=== PATIENT | female | born 1970 | race Caucasian/White ===

== ENCOUNTER → 2018-01-09 | Outpatient (CLI) | payer BC ==
[2018-01-09 07:43] LABS: Basophils # (A) 0.1 k/uL (0-0.2); Basophils % (A) 1 %; Eosinophils # (A) 0.1 k/uL (0-0.7); Eosinophils % (A) 2 %; HCT 43.9 % (34.0-46.0); HGB 14.4 gm/dL (11.4-16.0); Lymphocytes # (A) 1.7 k/uL (1.0-4.8); Lymphocytes % (A) 25 %; MCH 29.9 pg (25.0-35.0); MCHC 32.7 g/dL (31.0-37.0); MCV 91.5 fL (80.0-100.0); Mean Platelet Volume 7.8; Monocytes # (A) 0.4 k/uL (0-1.0); Monocytes % (A) 5 %; Neutrophils # (A) 4.4 k/uL (1.3-7.7); Neutrophils % (A) 65 %; Platelet Count 215 k/uL (150-450); RBC 4.79 m/uL (3.80-5.40); RDW 13.8 % (11.5-15.5); WBC 6.8 k/uL (3.8-10.6)
[2018-01-09 08:14] LABS: ALT 24 U/L (9-52); AST 20 U/L (14-36); Albumin 4.5 g/dL (3.5-5.0); Alkaline Phosphatase 75 U/L (38-126); Anion Gap 9 mmol/L; Blood Urea Nitrogen 16 mg/dL (7-17); Calcium 9.9 mg/dL (8.4-10.2); Carbon Dioxide 28 mmol/L (22-30); Chloride 107 mmol/L (98-107); Cholesterol 178 mg/dL (<200); Glucose 102 mg/dL (74-99); HDL Cholesterol 54 mg/dL (40-60); LDL Cholesterol,Calculated 103 mg/dL (0-99); Potassium 4.7 mmol/L (3.5-5.1); Sodium 144 mmol/L (137-145); Total Bilirubin 0.6 mg/dL (0.2-1.3); Total Protein 7.5 g/dL (6.3-8.2); Triglycerides 107 mg/dL (<150)
[2018-01-09 08:15] LABS: T4, Free (Free Thyroxine) 0.93 ng/dL (0.78-2.19)
[2018-01-09 11:24] LABS: Hemoglobin A1C 5.1 % (4.0-6.0)
== END ==
LOC: LABWHC1 07:17
PROVIDERS: ATTEND Nurse Practitioner Family
DX: Z00.00 Encounter for general adult medical examination without abnormal findings (principal); R00.2 Palpitations; E78.1 Pure hyperglyceridemia; E55.9 Vitamin D deficiency, unspecified
CPT/HCPCS: 36415; 80053; 80061; 82306; 83036; 84439; 84443; 85025

== ENCOUNTER → 2018-01-17 | Outpatient (CLI) | payer BC ==
[2018-01-17 08:34] VITALS: BP 122/81; PULSE 69; RESP 16; TEMP 97.6; BMI 26.9
--- NOTE | 2018-01-17 09:22 | P.GSHP ---
History of Present Illness H&P Date: 01/17/18 Chief Complaint: abnormal mammogram The patient is a 47 year old white female who noted her right nipple was pointing up last week. She also noted a change in size with the right smaller, and the left seeming larger. She also complains of a lump in her upper right breast. She had a mammogram done on 01-09-18 which was extremely dense breast. No suspicious axillary lymphadenopathy was seen. On the mammogram no nipple retraction was seen. It was recommended she undergo an ultrasound and an ultrasound was performed on 01/09/2018 as well. The patient on ultrasound was noted to have extensive irregular heterogeneous shadowing tissue. At the 12 o' clock position was a small 8 mm cyst no other solid or cystic lesions were noted. No axillary lymphadenopathy was noted. The impression was of recommendation for surgical consultation regarding palpable site spanning the 90 2 o'clock position in the right breast. Additionally there was extensive irregular shadowing seen in this region unable to determine if this represented a suspicious abnormality or very dense breast tissue. The surgical consultation was recommended. The patient denies any trauma to her breast. She hasn't had no recent infections in her breasts. She does not have any palpable changes in the left breast. Family History: 1. mother: breast disease ? cancer/ from dementia 2. maternal aunt: breast cancer, early 50's from metastatic disease Hormonal History: menarche: 11 : 1, 1 child, at age 26, breast fed: no patient had an ablation for bleeding at 42 BCP: 2 years hormones: none Past Surgical History: 1. C section Medical History: 1. migrains Social History: smoke: none alcohol: none drugs: none - Constitutional Constitutional: Denies chills, Denies fever - EENT Eyes: denies decreased vision, denies pain Ears: deny: decreased hearing, tinnitus Ears, nose, mouth and throat: Reports headache, Denies sore throat - Breasts Breasts: bilateral: as per HPI - Cardiovascular Cardiovascular: Denies chest pain, Denies shortness of breath - Respiratory Respiratory: Denies cough, Denies 7 - Gastrointestinal Gastrointestinal: Denies abdominal pain, Denies diarrhea, Denies nausea, Denies vomiting - Genitourinary (Female) Genitourinary: Denies dysuria, Denies hematuria - Musculoskeletal Musculoskeletal: Denies myalgias - Integumentary Integumentary: Denies pruritus, Denies rash - Neurological Neurological: Denies numbness, Denies weakness - Psychiatric Psychiatric: Denies anxiety, Denies depression - Endocrine Endocrine: Denies fatigue, Denies weight change - Hematologic/Lymphatic Comment: takes excedrin as needed last taken Saturday - Allergic/Immunologic Comment: none Past Medical History Additional Past Medical History / Comment(s): "migraines a couple times a week" History of Any Multi-Drug Resistant Organisms: None Reported Past Surgical History: Section Additional Past Surgical History / Comment(s): x1 Smoking Status: Never smoker - Past Family History Mother Family Medical History: Cancer, COPD, Dementia Additional Family Medical History / Comment(s): "mother may have had breast cancer". Maternal aunt had breast cancer that went metastatic Father Family Medical History: Myocardial Infarction ([place]) Additional Family Medical History / Comment(s): in 1995 Medications and Allergies Home Medications Medication Instructions Recorded Confirmed Type Aspirin/Acetaminophen/Caffeine 1 tab PO DAILY PRN 01/16/18 01/17/18 History [Excedrin Migraine Caplet] Multivitamins, Thera [Multivitamin 1 tab PO DAILY 01/16/18 01/17/18 History (formulary)] Allergies Allergy/AdvReac Type Severity Reaction Status Date / Time No Known Allergies Allergy Verified 01/16/18 12:04 Surgical - Exam Vital Signs Temp Pulse Resp BP Pulse Ox 97.6 F 69 16 122/81 97 01/17/18 08:23 01/17/18 08:23 01/17/18 08:23 01/17/18 08:23 01/17/18 08:23 - General well developed, well nourished, no distress - Eyes normal ocular movement - ENT no hearing loss, no congestion - Neck no masses, trachea midline - Respiratory normal respiratory effort, clear to auscultation - Cardiovascular Rhythm: regular Heart Sounds: normal: S1, S2 - Abdomen Abdomen: soft - Integumentary right nipple retracted - Neurologic no disoriented, no combative - Musculoskeletal normal gait, normal posture - Psychiatric oriented to time, oriented to person, oriented to place, speech is normal, memory intact Breast examination: Right breast: The nipple on the right is retracted, the patient has a large mass in the right breast extending over the entire upper outer and inner quadrants of the breast this extends down into the lower breast as well Right axilla: No adenopathy of concern Left breast: Multi-positional exam reveals extremely dense breast tissue with no discrete dominant mass Left axilla: No adenopathy of concern Results Radiographs of the breast and ultrasound of the breast reviewed Assessment and Plan Assessment: Impression: 1. Right breast mass highly suspicious for malignancy 2. Abnormal mammogram and ultrasound of the right breast 3. Migraine headaches Plan: 1. Patient scheduled for ultrasound core biopsy of radiographic abnormality of the right breast this corresponds to the palpable abnormality 2. Medical management of medical problems 3. Patient is going to be off her Excedrin until after the biopsy Cc: Dr. Myers
== END | disposition home or self-care (01) ==
LOC: WWCWWP 08:08
PROVIDERS: ATTEND Surgery
DX: Z53.9 Procedure and treatment not carried out, unspecified reason (principal)

== ENCOUNTER → 2018-01-23 | Day surgery (SDC) | payer BC ==
[2018-01-23 13:52] VITALS: RESP 16; TEMP 98.1; BMI 26.9
[2018-01-23 14:47] VITALS: BP 112/74; PULSE 60
--- NOTE | 2018-01-23 15:51 | USB ---
EXAMINATION TYPE: US biopsy breast VAD RT, MG diagnostic mammo RT wo CAD DATE OF EXAM: 01/23/2018 CLINICAL HISTORY: R92.8 ABN MAMMO. TECHNIQUE: Ultrasound vacuum assisted guided core biopsy of right breast. COMPARISON: Outside ultrasound 01/09/2018, outside mammogram 01/09/2018 FINDINGS: The procedure of ultrasound guided core biopsy was explained to the patient. An informed consent was then obtained. The patient was placed in supine positioning for imaging and for the procedure. The overlying skin was prepped and draped in usual sterile fashion. Lidocaine buffered with bicarbonate was used as anesthetic into the skin and subcutaneous tissue up to area of concern in the right breast. A karina was made with surgical scalpel. Under ultrasound guidance, a 12-gauge vacuum assisted biopsy gun device was used to obtain 4 core samples in the upper outer right breast. Following this, a biopsy clip was left in lesion. The patient tolerated the procedure well without any immediate complication. The patient was kept in the radiology department for short stay after the procedure and then discharged home in stable condition. Postprocedure mammogram shows the clip at the lateral margin of the abnormality on mammogram. IMPRESSION: Successful, uncomplicated ultrasound guided core biopsy of area of concern in the right breast, full pathology results to follow. Pathology Results: Benign RIGHT BREAST, ULTRASOUND GUIDED CORE BIOPSY: Fibrocystic changes including cyst wall with fibrosis and adenosis. Recommendation Follow up mammogram of the right breast in 6 months. ARLINE
== END ==
LOC: RADUSWWP 13:13
PROVIDERS: ATTEND Surgery
DX: N60.01 Solitary cyst of right breast (principal); R92.8 Other abnormal and inconclusive findings on diagnostic imaging of breast
CPT/HCPCS: 88305; 77065; 19083; A4648; J2001

== ENCOUNTER → 2018-01-30 | Outpatient (CLI) | payer BC ==
[2018-01-30 09:09] VITALS: BP 123/79; PULSE 74; RESP 18; TEMP 97.6; BMI 26.9
--- NOTE | 2018-01-30 09:30 | P.PN ---
Subjective Progress Note Date: 01/30/18 Principal diagnosis: Right breast mass/radiographic abnormality The patient is a 47-year-old white female who is status post left breast ultrasound core biopsy. The pathology was consistent with benign breast tissue fibrocystic changes. This is not concordant with physical exam nor the initial radiographic findings. The patient does have some ecchymosis at the site. 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 Objective - Vital Signs Vital signs: Vital Signs Temp 97.6 F 01/30/18 08:48 Pulse 74 01/30/18 08:48 Resp 18 01/30/18 08:48 BP 123/79 01/30/18 08:48 Pulse Ox 100 01/30/18 08:48 Intake & Output 01/29/18 01/30/18 01/30/18 18:59 06:59 18:59 Weight 68.946 kg - Constitutional General appearance: Present: average body habitus - EENT Eyes: Present: EOMI ENT: Present: hearing grossly normal - Neck Neck: Present: normal ROM - Respiratory Respiratory: bilateral: CTA - Cardiovascular Rhythm: regular Heart sounds: normal: S1, S2 - Integumentary Integumentary Comment(s): Patient with ecchymosis in the lateral aspect of the right breast related to core biopsy, no large hematoma, patient has persistent mass in the right breast extending from the upper outer quadrant to posterior to the nipple areolar complex this is highly suspicious for malignancy. - Psychiatric Psychiatric: Present: A&O x's 3, appropriate affect, intact judgment & insight Assessment and Plan Assessment: Impression: 1. Right breast mass highly suspicious for malignancy 2. Abnormal mammogram and ultrasound of the right breast 3. Migraines Plan: 1. Patient to have core biopsy of palpable abnormality if this is not diagnostic would recommend open biopsy in the operating room 2. Medical management of medical conditions CC: Dr. Myers
== END | disposition home or self-care (01) ==
LOC: WWCWWP 08:38
PROVIDERS: ATTEND Surgery
DX: Z53.9 Procedure and treatment not carried out, unspecified reason (principal)

== ENCOUNTER → 2018-02-07 | Outpatient (CLI) | payer BC ==
[2018-02-07 15:01] VITALS: BP 118/81; PULSE 73; RESP 18; TEMP 98.3; BMI 26.9
--- NOTE | 2018-02-07 15:15 | P.PN ---
Progress Note - Text Progress Note Date: 02/07/18 Isa is a 47-year-old white female who returns for follow-up visit status post core biopsy of palpable abnormality in the right breast. This was performed on . The lesion is invasive lobular carcinoma. The lesion is ER/DE positive and HER-2 negative. Physical exam: There is ecchymosis in the area of the breast related to recent core biopsy No evidence of any infection The lesion itself was approximately 10 cm x 10 cm Right axilla no adenopathy of concern Impression: 1. Invasive lobular carcinoma of the right breast T4 N0 M0 2. Plan neoadjuvant chemotherapy 3. Follow-up here in 1 month CC:Louis
== END ==
LOC: WWCWWP 13:55
PROVIDERS: ATTEND Surgery
DX: Z53.9 Procedure and treatment not carried out, unspecified reason (principal)

== ENCOUNTER → 2018-02-17 | Outpatient (CLI) | payer BC ==
--- NOTE | 2018-02-20 17:15 | BMR ---
EXAMINATION TYPE: MR breast BILAT wo/w con DATE OF EXAM: 02/17/2018 COMPARISON: Outside right breast ultrasound dated 01/09/2018 and diagnostic right mammogram dated 01/23/2018 HISTORY: Rt breast lump/cancer 1 month ago TECHNIQUE: A series of fat and water weighted images in the long and short axis views of both breasts are obtained in conjunction with dynamic contrast MRI with subtraction technique. The patient was i njected with 7.5 mL intravenous Gadavist gadolinium contrast. Three-dimensional and additional post processing imaging is created on independent workstation and reviewed during official interpretation of this study. FINDINGS: The breasts are composed of extreme fibroglandular tissue, limiting sensitivity of the exam ination. There is symmetric moderate background parenchymal enhancement, which also limits exam. Ther e are numerous T2 hyperintense nonenhancing small cysts and some T2 hyperintense and T1 hyperintense likely proteinaceous or hemorrhagic cysts. Increased T1 signal is also seen in a linear fashion that may relate to proteinaceous intraductal debris within the right lateral breast. Susceptibility artifa ct is seen surrounding a hemorrhagic/proteinaceous cyst on the right at the 9:00 position from the pr ior biopsy. Asymmetric breast size is seen with the left larger than the right. There is suspicious nonmass enhancement there is multifocal and multicentric within the right breast. Within the lateral right breast at the 8-9 o'clock position there is an elongated region measuring a t least 5.0 cm in anterior posterior dimension by 1.5 cm in transverse dimension with foci containing abnormal washout enhancement. Caudal to this in the lower outer quadrant there are numerous foci of abnormal enhancement with the largest at posterior depth measuring 7 mm. Within the lower inner quadr ant there is an 8 mm area of nonmass enhancement at the 5:00 position. This is at middle depth approx imately 3 cm from the nipple. Nonmass enhancement is seen at the 3:00 position measuring a length of 4.7 cm and extending cranially to the 12:00 position. No suspicious areas of mass or nonmass enhancement are seen within the left breast. No suspicious axi llary or internal mammary adenopathy. No suspicious intramammary adenopathy. IMPRESSION: BI-RADS [id number] malignancy. Suspicious nonmass enhancement is seen multicentricly on the righ t within all 4 quadrants with the largest anterior posterior dimension of 5.0 cm at the 9 to 10:00 po sition. No suspicious intramammary, internal mammary or axillary adenopathy within either breast. No suspicious MR findings within the left breast to suggest contralateral disease. If breast conservatio n therapy is pursued additional right breast biopsies would be recommended after second look ultrasou nd within all 4 quadrants.
== END | disposition home or self-care (01) ==
LOC: RADMRIMAIN 14:08
PROVIDERS: ATTEND Internal Medicine Hematology & Oncology
DX: C50.411 Malignant neoplasm of upper-outer quadrant of right female breast (principal)
CPT/HCPCS: 77059; 0159T; A9585

== ENCOUNTER → 2018-02-20 | Outpatient (CLI) | payer BC ==
--- NOTE | 2018-02-20 12:23 | CT ---
EXAMINATION TYPE: CT ChestAbdPelvis w con DATE OF EXAM: 02/20/2018 COMPARISON: NONE HISTORY: Breast cancer right-pre chemo CT DLP: 619.0 mGycm. Automated Exposure Control for Dose Reduction was Utilized. CONTRAST: CT scan of the thorax, abdomen and pelvis is performed with IV Contrast, patient injected with 100 mL of Isovue 300. FINDINGS: LUNGS: There is minimal bibasilar subsegmental dependent atelectasis. The lungs are grossly clear, th ere is no concerning parenchymal mass or nodule identified. There is no pleural effusion or pneumot horax seen. The tracheobronchial tree is patent. MEDIASTINUM: There are no greater than 1 cm hilar or mediastinal lymph nodes. No pericardial effusi on is seen. No axillary or internal mammary adenopathy is seen bilaterally. Bright lateral biopsy ma rker is noted. LIVER/GB: Hepatic parenchyma is diffusely hypoattenuated in comparison to that of the spleen, most co mmonly seen in hepatic steatosis. This finding limits evaluation for hepatic masses. No gross evidenc e of hepatic mass is seen. No intrahepatic biliary ductal dilatation. No cholelithiasis PANCREAS: No significant abnormality is seen. SPLEEN: No significant abnormality is seen. Splenule is noted adjacent to the [place] spleen. ADRENALS: No significant abnormality is seen. KIDNEYS: The kidneys enhance and excrete symmetrically. No hydronephrosis. BOWEL: Moderate amount retained colonic stool is seen within the rectosigmoid junction. No pericoloni c fat stranding is seen or dilated large or small bowel. Appendix is contrast-filled and within shira l limits. GENITAL ORGANS: There is diffuse heterogeneity of the uterine myometrium and endometrium. Follicular changes are seen of the ovaries. Prominent pelvic vasculature are noted bilaterally. LYMPH NODES: No greater than 1cm abdominal or pelvic lymph nodes are appreciated. OSSEOUS STRUCTURES: There is a 4 mm small probable hemangioma is seen at T8. OTHER: There is a small fat filled periumbilical hernia. IMPRESSION: 1. No suspicious findings to suggest metastatic disease within the chest, abdomen, or pelvis. Probabl e 4 mm hemangioma of the T8 vertebral body. 2. Diffuse heterogeneity of the myometrium and endometrium. Further characterization with pelvic ultr asound is recommended to evaluate for discrete leiomyomas otherwise pelvic MRI would be recommended t o evaluate for adenomyosis or abnormal enhancement.
--- NOTE | 2018-02-20 14:22 | NM ---
EXAMINATION TYPE: NM bone scan whole body DATE OF EXAM: 02/20/2018 COMPARISON: CT chest, abdomen, and pelvis of the same date. HISTORY: Right-sided breast cancer. Delayed whole-body scanning was performed following the injection of 23.6 mCi Tc 99m MDP. Images acq uired 4 hours post injection. FINDINGS: Focal radiotracer uptake is seen within the posterior lateral third rib on the left with no CT correl ate. No other suspicious radiotracer accumulation is seen to suggest metastatic disease. There is sym metric arthropathic uptake within the sacroiliac joints and shoulders as well as to a lesser degree w ithin the hips, knees, and ankles as well as elbows. IMPRESSION: Focal radiotracer uptake within the posterior lateral left third rib without CT correlate. Finding is most suspicious for metastasis given the breast cancer subtype although focus is indeterminate. No o ther suspicious lesions throughout the axial or appendicular skeleton to suggest metastasis.
== END | disposition home or self-care (01) ==
LOC: RADNMMAIN 08:27
PROVIDERS: ATTEND Internal Medicine Hematology & Oncology
DX: C50.411 Malignant neoplasm of upper-outer quadrant of right female breast (principal)
CPT/HCPCS: 71260; 74177; 78306; A9503; Q9967

== ENCOUNTER → 2018-03-13 | Outpatient (CLI) | payer BC ==
[2018-03-13 12:32] LABS: Blood Urea Nitrogen 16 mg/dL (7-17)
--- NOTE | 2018-03-13 12:58 | CT ---
EXAMINATION TYPE: CT angio chest DATE OF EXAM: 03/13/2018 COMPARISON: Recent CT chest February 20, 2018 HISTORY: SOB, breast CA CT DLP: 176 mGycm. Automated Exposure Control for Dose Reduction was Utilized. CONTRAST: CTA scan of the thorax is performed with IV Contrast, patient injected with 100 mL of Isovue 370, pul monary embolism protocol. MIP Images are created on CT scanner and reviewed. FINDINGS: LUNGS: Patchy bibasilar linear scarring and/or atelectasis is redemonstrated. Dependent atelectasis b ilateral lower lobes is again seen. No suspicious new focal consolidation or groundglass opacity is s een. No pleural effusion or pneumothorax is noted bilaterally. Tracheobronchial tree is patent. No serna spicious parenchymal nodules or masses are identified. MEDIASTINUM: There is satisfactory enhancement of the pulmonary artery and its branches, there is no CT evidence for pulmonary embolism. There are no greater than 1 cm hilar or mediastinal lymph nodes. Heart size is stable and mildly enlarged. There is tiny pericardial effusion increased from prior. T here is new right internal jugular Mediport catheter terminating in SVC. OTHER: Biopsy clip lateral right breast axial image 63 is redemonstrated. IMPRESSION: 1. No CT evidence for acute pulmonary embolism. No suspicious new acute pulmonary process.
== END | disposition home or self-care (01) ==
LOC: RADCTMAIN 11:52
PROVIDERS: ATTEND Internal Medicine Hematology & Oncology
DX: R06.02 Shortness of breath (principal)
CPT/HCPCS: 82565; 84520; 71275; 36415; Q9967

== ENCOUNTER 2018-05-17 15:15 | Inpatient (IN) | payer BC ==
[2018-05-17] MEDS ORDERED: SODIUM CHLORIDE 0.9% 1,000 ML IV ONE (16:03)
--- NOTE | 2018-05-17 16:05 | ED ---
Fever HPI - General Chief Complaint: Fever Stated Complaint: Fever Time Seen by Provider: 05/17/18 15:38 Source: patient Mode of arrival: ambulatory Limitations: no limitations - History of Present Illness Initial Comments: 48-year-old female with active breast cancer on chemotherapy every for the last 3 weeks for a total of 16 treatments presenting with fever that presented to days prior. She states that her fever was 101 at home. She called her oncologist, Dr. Woodard, who put her on levofloxacin starting yesterday. The patient has had 2 doses and continues to be febrile. She admits to a nonproductive cough, generalized abdominal pain with constipation. Patient states her last bowel movement was 3 days prior. She is still passing gas. Denies any chest pain, shortness of breath, urinary symptoms. - Related Data Home Medications Medication Instructions Recorded Confirmed Levofloxacin [Levaquin] 500 mg PO DAILY 05/17/18 05/17/18 Allergies Allergy/AdvReac Type Severity Reaction Status Date / Time No Known Allergies Allergy Verified 05/17/18 16:03 Review of Systems ROS Statement: Those systems with pertinent positive or pertinent negative responses have been documented in the HPI. Review of Systems Constitutional: Positive fever, chills Eyes: Denies change in vision, Denies pain Ears, nose, mouth, throat: Denies headaches, Denies sore throat Cardiovascular: Denies chest pain. Denies palpitations Respiratory: Denies shortness of breath, Positive cough Gastrointestinal: Positive abdominal pain. Denies nausea, vomiting, diarrhea. Genitourinary: Denies hematuria, Denies infections Musculoskeletal: Denies pain, Denies swelling Integumentary: Denies rash Neurological: Denies headache, focal weakness, focal numbness Psychiatric: Denies anxiety, Denies depression Hematologic/Lymphatic: Denies easy bleeding or bruising ROS Other: All systems not noted in ROS Statement are negative. Past Medical History Past Medical History: Cancer Additional Past Medical History / Comment(s): "migraines a couple times a week" , breast cancer History of Any Multi-Drug Resistant Organisms: None Reported Past Surgical History: Section Additional Past Surgical History / Comment(s): x1 Past Anesthesia/Blood Transfusion Reactions: No Reported Reaction Past Psychological History: No Psychological Hx Reported Smoking Status: Never smoker Past Alcohol Use History: None Reported Past Drug Use History: None Reported - Past Family History Mother Family Medical History: Cancer, COPD, Dementia Additional Family Medical History / Comment(s): "mother may have had breast cancer". Maternal aunt had breast cancer that went metastatic Father Family Medical History: Myocardial Infarction ([place]) Additional Family Medical History / Comment(s): in 1995 General Exam - General Exam Comments Initial Comments: General: Awake, alert, No acute Distress HENT: Normocephalic. Atraumatic Eyes: PERRL. EOMI. No scleral icterus. No injected conjunctiva Neck: Full ROM Chest/Lungs: Clear to auscultation bilaterally. No wheezing, rhonchi, or rales Cardiac: Regular rate, rhythm. No murmurs or rubs Abdomen/GI: Soft, nontender, nondistended. No rebound, guarding, or rigidity. Musculoskeletal: Full ROM Skin: Warm, dry, intact Neurologic: A/Ox3, no weakness, no sensory deficit, no abnormal gait, no coordination deficit Limitations: no limitations Course Vital Signs 05/17/18 05/17/18 05/17/18 15:22 16:25 16:54 Temperature 98.8 F 100.2 F H Pulse Rate 104 H 94 Respiratory 18 18 Rate Blood Pressure 99/66 96/71 O2 Sat by Pulse 97 100 Oximetry 05/17/18 05/17/18 05/17/18 17:42 18:29 18:52 Temperature 100.9 F H 99 F Pulse Rate 99 96 95 Respiratory 18 18 18 Rate Blood Pressure 112/65 106/70 106/70 O2 Sat by Pulse 96 98 97 Oximetry Medical Decision Making - Medical Decision Making 38-year-old female presenting with fever. Initial exam the patient is awake, alert, no acute distress. She is febrile but and is on the low-normal for BP. This improved with IVF bolus. Patient is actively undergoing chemotherapy and is currently leukopenic with a white blood cell count of 2.5. Neutrophils 82%. Patient was still placed on neutropenic precautions. She was found have a UTI remainder of her lab work was otherwise unremarkable. CT was negative for acute process. Patient was given Rocephin in the emergency department requires admission. I spoke with Dr. Myers who is agreeable to admission for sepsis, UTI , and leukopenia. Patient states she is unable to swallow pills at baseline. Patient was given liquid Tylenol for her fever. She was refusing to drink the Effer-K for her potassium replacement. IV potassium ordered. - Lab Data Result diagrams: 05/17/18 16:15 05/17/18 16:15 Lab Results 05/17/18 05/17/18 05/17/18 Range/Units 16:15 16:15 16:15 WBC 2.5 L (3.8-10.6) k/uL RBC 2.99 L (3.80-5.40) m/uL Hgb 9.6 L (11.4-16.0) gm/dL Hct 27.9 L (34.0-46.0) % MCV 93.2 (80.0-100.0) fL MCH 32.1 (25.0-35.0) pg MCHC 34.5 (31.0-37.0) g/dL RDW 18.1 H (11.5-15.5) % Plt Count 191 (150-450) k/uL Neutrophils % 82 % Lymphocytes % 7 % Monocytes % 8 % Eosinophils % 2 % Basophils % 0 % Neutrophils # 2.0 (1.3-7.7) k/uL Lymphocytes # 0.2 L (1.0-4.8) k/uL Monocytes # 0.2 (0-1.0) k/uL Eosinophils # 0.0 (0-0.7) k/uL Basophils # 0.0 (0-0.2) k/uL Poikilocytosis Moderate Anisocytosis Slight Sodium 133 L (137-145) mmol/L Potassium 3.3 L (3.5-5.1) mmol/L Chloride 99 (98-107) mmol/L Carbon Dioxide 27 (22-30) mmol/L Anion Gap 7 mmol/L BUN 11 (7-17) mg/dL Creatinine 0.64 (0.52-1.04) mg/dL Est GFR (CKD-EPI)AfAm >90 (>60 ml/min/1.73 sqM) Est GFR (CKD-EPI)NonAf >90 (>60 ml/min/1.73 sqM) Glucose 97 (74-99) mg/dL Plasma Lactic Acid Ozzie (0.7-2.0) mmol/L Calcium 9.1 (8.4-10.2) mg/dL Total Bilirubin 1.1 (0.2-1.3) mg/dL Conjugated Bilirubin 0.0 (0.0-0.3) mg/dL Unconjugated Bilirubin 0.8 (0.0-1.1) mg/dL Delta Bilirubin 0.3 H (0.0-0.2) mg/dL AST 24 (14-36) U/L ALT 25 (9-52) U/L Alkaline Phosphatase 51 (38-126) U/L Total Protein 6.1 L (6.3-8.2) g/dL Albumin 3.6 (3.5-5.0) g/dL Lipase 70 (23-300) U/L Urine Color Urine Appearance (Clear) Urine pH (5.0-8.0) Ur Specific Cameron (1.001-1.035) Urine Protein (Negative) Urine Glucose (UA) (Negative) Urine Ketones (Negative) Urine Blood (Negative) Urine Nitrite (Negative) Urine Bilirubin (Negative) Urine Urobilinogen (<2.0) mg/dL Ur Leukocyte Esterase (Negative) Urine RBC (0-5) /hpf Urine WBC (0-5) /hpf Ur Squamous Epith Cells (0-4) /hpf Urine Bacteria (None) /hpf Urine Mucus (None) /hpf Influenza Type A RNA Not Detected (Not Detectd) Influenza Type B (PCR) Not Detected (Not Detectd) 05/17/18 05/17/18 Range/Units 16:15 16:20 WBC (3.8-10.6) k/uL RBC (3.80-5.40) m/uL Hgb (11.4-16.0) gm/dL Hct (34.0-46.0) % MCV (80.0-100.0) fL MCH (25.0-35.0) pg MCHC (31.0-37.0) g/dL RDW (11.5-15.5) % Plt Count (150-450) k/uL Neutrophils % % Lymphocytes % % Monocytes % % Eosinophils % % Basophils % % Neutrophils # (1.3-7.7) k/uL Lymphocytes # (1.0-4.8) k/uL Monocytes # (0-1.0) k/uL Eosinophils # (0-0.7) k/uL Basophils # (0-0.2) k/uL Poikilocytosis Anisocytosis Sodium (137-145) mmol/L Potassium (3.5-5.1) mmol/L Chloride (98-107) mmol/L Carbon Dioxide (22-30) mmol/L Anion Gap mmol/L BUN (7-17) mg/dL Creatinine (0.52-1.04) mg/dL Est GFR (CKD-EPI)AfAm (>60 ml/min/1.73 sqM) Est GFR (CKD-EPI)NonAf (>60 ml/min/1.73 sqM) Glucose (74-99) mg/dL Plasma Lactic Acid Ozzie 1.0 (0.7-2.0) mmol/L Calcium (8.4-10.2) mg/dL Total Bilirubin (0.2-1.3) mg/dL Conjugated Bilirubin (0.0-0.3) mg/dL Unconjugated Bilirubin (0.0-1.1) mg/dL Delta Bilirubin (0.0-0.2) mg/dL AST (14-36) U/L ALT (9-52) U/L Alkaline Phosphatase (38-126) U/L Total Protein (6.3-8.2) g/dL Albumin (3.5-5.0) g/dL Lipase (23-300) U/L Urine Color Yellow Urine Appearance Clear (Clear) Urine pH 6.5 (5.0-8.0) Ur Specific Cameron 1.013 (1.001-1.035) Urine Protein Negative (Negative) Urine Glucose (UA) Negative (Negative) Urine Ketones 1+ H (Negative) Urine Blood Moderate H (Negative) Urine Nitrite Negative (Negative) Urine Bilirubin Negative (Negative) Urine Urobilinogen <2.0 (<2.0) mg/dL Ur Leukocyte Esterase Moderate H (Negative) Urine RBC 13 H (0-5) /hpf Urine WBC 9 H (0-5) /hpf Ur Squamous Epith Cells 5 H (0-4) /hpf Urine Bacteria Rare H (None) /hpf Urine Mucus Few H (None) /hpf Influenza Type A RNA (Not Detectd) Influenza Type B (PCR) (Not Detectd) Disposition Clinical Impression: Sepsis, UTI (urinary tract infection), Leukopenia Disposition: ADMITTED IP TO THIS HOSP Condition: Good Decision Date: 05/17/18 Decision Time: 17:27
[2018-05-17] MEDS ORDERED: KETOROLAC 30 MG/ML 1 ML VIAL IVP STA (16:27)
[2018-05-17 16:40] LABS: Anisocytosis Slight; Basophils % (A) 0 %; Eosinophils % (A) 2 %; HCT 27.9 % (34.0-46.0); HGB 9.6 gm/dL (11.4-16.0); Lymphocytes # (A) 0.2 k/uL (1.0-4.8); Lymphocytes % (A) 7 %; MCH 32.1 pg (25.0-35.0); MCHC 34.5 g/dL (31.0-37.0); MCV 93.2 fL (80.0-100.0); Mean Platelet Volume 7.2; Monocytes # (A) 0.2 k/uL (0-1.0); Monocytes % (A) 8 %; Neutrophils % (A) 82 %; Platelet Count 191 k/uL (150-450); Poikilocytosis Moderate; RBC 2.99 m/uL (3.80-5.40); RDW 18.1 % (11.5-15.5); WBC 2.5 k/uL (3.8-10.6)
[2018-05-17 16:45] LABS: ALT 25 U/L (9-52); AST 24 U/L (14-36); Albumin 3.6 g/dL (3.5-5.0); Alkaline Phosphatase 51 U/L (38-126); Anion Gap 7 mmol/L; Bilirubin, Delta 0.3 mg/dL (0.0-0.2); Bilirubin,Unconjugated 0.8 mg/dL (0.0-1.1); Blood Urea Nitrogen 11 mg/dL (7-17); Calcium 9.1 mg/dL (8.4-10.2); Carbon Dioxide 27 mmol/L (22-30); Chloride 99 mmol/L (98-107); Glucose 97 mg/dL (74-99); Lipase 70 U/L (23-300); Potassium 3.3 mmol/L (3.5-5.1); Sodium 133 mmol/L (137-145); Total Bilirubin 1.1 mg/dL (0.2-1.3); Total Protein 6.1 g/dL (6.3-8.2)
[2018-05-17 16:48] LABS: Appearance,Urine Clear (Clear); Bacteria,Urine Rare /hpf; Bilirubin,Urine Negative (Negative); Blood,Urine Moderate (Negative); Color,Urine Yellow; Glucose,Urine (UA) Negative (Negative); Ketones,Urine 1+ (Negative); Leukocyte Esterase,Urine Moderate (Negative); Mucus,Urine Few /hpf; Nitrite,Urine Negative (Negative); PH, Urine 6.5 (5.0-8.0); Protein,Urine Negative (Negative); RBC,Urine 13 /hpf (0-5); Specific Gravity,Urine 1.013 (1.001-1.035); Squamous Epithelial Cell,Urine 5 /hpf (0-4); Urobilinogen,Urine <2.0 mg/dL (<2.0); WBC,Urine 9 /hpf (0-5)
--- NOTE | 2018-05-17 16:49 | XR ---
EXAMINATION TYPE: XR chest 2V DATE OF EXAM: 05/17/2018 COMPARISON: CT pulmonary angiogram 03/13/2018 HISTORY: Fever and pain TECHNIQUE: Frontal and lateral views of the chest are obtained. FINDINGS: There is no focal air space opacity, pleural effusion, or pneumothorax seen. Left basilar subsegmental atelectasis. The cardiac silhouette size is within normal limits. The osseous structu res are intact. Right sided IJ port is appropriately positioned. IMPRESSION: No acute cardiopulmonary process.
[2018-05-17] MEDS ORDERED: POTASSIUM BICARBONATE/CIT AC 20 MEQ TABLET.EFF PO ONE (16:57)
--- NOTE | 2018-05-17 16:59 | CT ---
EXAMINATION TYPE: CT abdomen pelvis w con DATE OF EXAM: 05/17/2018 COMPARISON: HISTORY: Fever and constipation, history of breast cancer. CT DLP: 664.8 mGycm Automated exposure control for dose reduction was used. TECHNIQUE: Helical acquisition of images was performed from the lung bases through the pelvis. CONTRAST: Performed without Oral Contrast and with IV Contrast, patient injected with 100ml mL of Isovue 300. FINDINGS: LUNG BASES: Minimal bibasilar subsegmental atelectasis. LIVER/GB: No significant abnormality is appreciated. PANCREAS: No significant abnormality is seen. SPLEEN: No significant abnormality is seen. ADRENALS: No significant abnormality is seen. KIDNEYS: No significant abnormality is seen. FREE AIR: No free air is visualized. RETROPERITONEAL ADENOPATHY: None visualized REPRODUCTIVE ORGANS: No significant abnormality is seen URINARY BLADDER: No significant abnormality is seen. PELVIC ADENOPATHY: None visualized. OSSEOUS STRUCTURES: No significant abnormality is seen. BOWEL: No significant abnormality is seen. Normal appendix. IMPRESSION: Unremarkable exam.
[2018-05-17] MEDS: SODIUM CHLORIDE 0.9% 1,000 ML IV SCH (17:32)
[2018-05-17] MEDS: ACETAMINOPHEN ORAL SUSP (PEDS) 3,840 MG/120 ML BOTTLE PO ONE ×2 (18:09→18:26)
[2018-05-17] MEDS ORDERED: POTASSIUM CHLORIDE 10 MEQ in WATER FOR INJECTION 1 100ML.BAG IVPB STA (18:58)
[2018-05-17] MEDS: LACTULOSE 20 GM/30 ML CUP PO SCH (20:23)
[2018-05-18] MEDS: SODIUM CHLORIDE 0.9% 1,000 ML IV SCH ×4 (00:58→21:25)
[2018-05-18] MEDS: ACETAMINOPHEN ORAL SUSP (PEDS) 3,840 MG/120 ML BOTTLE PO PRN ×2 (04:24→13:20)
[2018-05-18] MEDS: LACTULOSE 20 GM/30 ML CUP PO SCH (08:14)
[2018-05-18] MEDS ORDERED: LACTULOSE 20 GM/30 ML CUP PO PRN (09:21)
--- NOTE | 2018-05-18 12:37 | P.HPIM ---
History of Present Illness H&P Date: 05/18/18 Chief Complaint: Fever Visit pleasant 48-year-old female who presented to the emergency department complaining of fever at home. Patient has past medical history of active breast cancer on chemotherapy every for the last 3 weeks for a total of 16 treatments she has completed 7 cycles. Patient developed a fever at home and called her oncologist Dr. Woodard who put her on levofloxacin starting yesterday. Patient took 2 doses and continued to be febrile. She presented with a nonproductive cough, generalized abdominal pain with constipation. Her last bowel movement was approximately 3 days prior. She denied any chest pain shortness of breath or urinary symptoms. At this time patient is resting comfortably and continues to have no complaints. Her urine analysis showed positive UTI. Patient past medical history includes breast carcinoma without lymph node involvement, migraines, IBS. Review of Systems Review Of Systems: Constitutional: Reports fever, no chills, no night sweats. No weight change. No weakness, reports fatigue no lethargy. No daytime sleepiness. EENT: No headache. No blurred vision or double vision, no loss of vision. No loss of Hearing, no ringing in the ears, no dizziness. No nasal drainage or congestion. No epistaxis. No sore throat. Lungs: No shortness of breath, reports cough, no sputum production. No wheezing. Cardiovascular: No chest pain, no lower extremity edema. No palpitations. No paroxysmal nocturnal dyspnea. No orthopnea. No lightheadedness or dizziness. No syncopal episodes. Abdominal: no abdominal discomfort. No nausea, vomiting. no diarrhea. Report constipation. No bloody or tarry stools. Report Decrease appetite. Genitourinary: No dysuria, increased frequency, urgency. No urinary retention. Musculoskeletal: No myalgias. No muscle weakness, no gait dysfunction, no frequent falls. No back pain. No neck pain. Integumentary: No wounds, no lesions. No rash or pruritus. No unusual bruising. No change in hair or nails. Neurologic: No aphasia. No facial droop. No change in mentation. No head injury. No headache. No paralysis. No paresthesia. Psychiatric: No depression. No anxiety. No mood swings. Endocrine: No abnormal blood sugars. No weight change. No excessive sweating or thirst. Past Medical History Past Medical History: Cancer Additional Past Medical History / Comment(s): "migraines a couple times a week" , breast cancer History of Any Multi-Drug Resistant Organisms: None Reported Past Surgical History: Section Additional Past Surgical History / Comment(s): x1 Past Anesthesia/Blood Transfusion Reactions: No Reported Reaction Past Psychological History: No Psychological Hx Reported Smoking Status: Never smoker Past Alcohol Use History: None Reported Past Drug Use History: None Reported Additional History: . 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 Mother at 76 related to dementia. Maternal aunt had breast cancer that went metastatic Father Family Medical History: Myocardial Infarction ([place]) Additional Family Medical History / Comment(s): in 1995 age of 52 Daughter(s) Family Medical History: No Reported History Brother(s) Family Medical History: No Reported History Medications and Allergies Home Medications Medication Instructions Recorded Confirmed Type Levofloxacin [Levaquin] 500 mg PO DAILY 05/17/18 05/17/18 History Allergies Allergy/AdvReac Type Severity Reaction Status Date / Time No Known Allergies Allergy Verified 05/17/18 16:03 Physical Exam Vitals: Vital Signs Temp Pulse Pulse Resp BP BP Pulse Ox 05/18/18 05:04 99.3 F 05/18/18 04:53 100.9 F H 109 H 20 102/60 94 L 05/18/18 00:59 99.4 F 05/18/18 00:00 20 05/17/18 20:00 98.0 F 86 20 93/59 95 05/17/18 19:23 99.3 F 86 18 106/67 98 05/17/18 18:52 99 F 95 18 108/64 97 05/17/18 18:29 96 18 106/70 98 05/17/18 17:42 100.9 F H 99 18 112/65 96 05/17/18 16:54 94 18 96/71 100 05/17/18 16:25 100.2 F H 05/17/18 15:22 98.8 F 104 H 18 99/66 97 Intake and Output 05/17/18 05/18/18 05/18/18 22:59 06:59 14:59 Intake Total 1150 1560 Balance 1150 1560 Intake: Intake, IV Titration 550 1200 Amount Potassium Chloride 10 meq 100 In Water For Injection 1 100ml.bag @ 100 mls/hr IVPB ONCE STA Rx#: [id number] Sodium Chloride 0.9% 1, 450 1200 000 ml @ 150 mls/hr IV . Q6H40M [facility] Rx#:[id number] Oral 600 360 Other: # Voids 2 1 Weight 65.771 kg General Appearance: Alert, cooperative, no distress, appears younger stated age. Neck HEENT: Supple, no lymphadenopathy, no thyroid enlargement, no carotid bruits. Lungs: Clear to auscultation without crackles or wheezes no rhonchi, no deformity. Chest Wall: Chest wall normal expansion with deep inspiration no tenderness and no deformity was found on exam, no costochondral pain or discomfort. Heart: Regular rate and rhythm, S1, S2 normal, no murmur, rub or gallop. Back: Symmetric, no curvature, ROM normal, no CVA tenderness. Abdomen: Soft, non-tender, no rebound or rigidity, no hepatosplenomegaly. Extremities: Extremities normal, atraumatic, no cyanosis or edema. Pulses: 2+ and symmetric. Skin: Skin color, texture, tugor normal, no rashes or lesions. Neurologic: Alert oriented x3 cranial nerves II through XII intact, no motor deficit, no abnormal balance or gait Results CBC & Chem 7: 05/17/18 16:15 05/17/18 16:15 Labs: Abnormal Lab Results - Last 24 Hours (Table) 05/17/18 05/17/18 05/17/18 Range/Units 16:15 16:15 16:20 WBC 2.5 L (3.8-10.6) k/uL RBC 2.99 L (3.80-5.40) m/uL Hgb 9.6 L (11.4-16.0) gm/dL Hct 27.9 L (34.0-46.0) % RDW 18.1 H (11.5-15.5) % Lymphocytes # 0.2 L (1.0-4.8) k/uL Sodium 133 L (137-145) mmol/L Potassium 3.3 L (3.5-5.1) mmol/L Delta Bilirubin 0.3 H (0.0-0.2) mg/dL Total Protein 6.1 L (6.3-8.2) g/dL Urine Ketones 1+ H (Negative) Urine Blood Moderate H (Negative) Ur Leukocyte Esterase Moderate H (Negative) Urine RBC 13 H (0-5) /hpf Urine WBC 9 H (0-5) /hpf Ur Squamous Epith Cells 5 H (0-4) /hpf Urine Bacteria Rare H (None) /hpf Urine Mucus Few H (None) /hpf Microbiology - Last 24 Hours (Table) 05/17/18 14:20 Urine Culture - Preliminary Urine,Voided Thrombosis Risk Factor Assmnt - Choose All That Apply Any of the Below Risk Factors Present?: Yes Each Factor Represents 1 point: Age 41-60 years, Obesity (BMI >25) Other Risk Factors: Yes Each Risk Factor Represents 2 Points: Malignancy Thrombosis Risk Factor Assessment Total Risk Factor Score: 4 Thrombosis Risk Factor Assessment Level: Moderate Risk Assessment and Plan Plan: 1. Sepsis related to urinary tract infection. Obtain urine culture, Rocephin 1 g daily. 2. Leukopenia possibly neutropenia related to chemotherapy. Same as #1, 3. Generalized weakness. Same as #1 4. Fever. acetaminophen 1000 mg by mouth every 6 hours 5. Constipation. Lactulose 50 mg by mouth once as needed for when necessary, Colace as needed, MiraLAX 17 g as needed 6. Migraine stable 7. GI prophylaxis. Pepcid 20 mg [id number] 8. DVT prophylaxis. Ambulation CODE STATUS: Full code Discharge plan: Possibly home in 2 days DNP note has been reviewed and discussed with Dr. Hernandez and the impression and plan of care has been directed as dictated.
[2018-05-18 12:44] LABS: Anisocytosis Slight; Basophils % (A) 1 %; Eosinophils # (A) 0.1 k/uL (0-0.7); Eosinophils % (A) 2 %; HCT 27.3 % (34.0-46.0); HGB 9.2 gm/dL (11.4-16.0); Lymphocytes # (A) 0.3 k/uL (1.0-4.8); Lymphocytes % (A) 8 %; MCH 31.2 pg (25.0-35.0); MCHC 33.9 g/dL (31.0-37.0); Mean Platelet Volume 7.2; Monocytes # (A) 0.2 k/uL (0-1.0); Monocytes % (A) 8 %; Neutrophils # (A) 2.5 k/uL (1.3-7.7); Neutrophils % (A) 80 %; Platelet Count 188 k/uL (150-450); Poikilocytosis Moderate; RBC 2.96 m/uL (3.80-5.40); WBC 3.1 k/uL (3.8-10.6)
[2018-05-18 13:23] LABS: ALT 24 U/L (9-52); AST 20 U/L (14-36); Albumin 2.9 g/dL (3.5-5.0); Alkaline Phosphatase 37 U/L (38-126); Anion Gap 7 mmol/L; Blood Urea Nitrogen 6 mg/dL (7-17); Calcium 8.5 mg/dL (8.4-10.2); Carbon Dioxide 23 mmol/L (22-30); Chloride 107 mmol/L (98-107); Glucose 101 mg/dL (74-99); Magnesium 1.8 mg/dL (1.6-2.3); Phosphorus 3.3 mg/dL (2.5-4.5); Potassium 3.7 mmol/L (3.5-5.1); Sodium 137 mmol/L (137-145); Total Bilirubin 0.7 mg/dL (0.2-1.3); Total Protein 5.1 g/dL (6.3-8.2)
--- NOTE | 2018-05-18 16:03 | P.CONS ---
History of Present Illness - Reason for Consult Consult date: 05/18/18 Pancytopenia, on chemotherapy for breast cancer, fevers Requesting physician: Samira Mosley - Chief Complaint Fevers - History of Present Illness Ms Gan is a pleasant female patient known to us for treatment of her invasive lobular carcinoma. Her primary oncologist is Dr. Woodard. In December of 2017, she noted a plpable mass with nipple retraction on her right breast. On - Mammogram revealed extensively dense breast, therefore a simulataneous ultrasound was completed and revealed irregular shadowing in right breast with suspicious tissue formation. 01/31/18 - Core biopsy resulted with invasive lobular carcinoma, grade 1, strongly ER/LA Positive and HER2/Justina neg 02/20/18 - Bilateral Breast MRI revealed 2 large areas of suspicious enhancement and multiple suspicious foci on the right breast. Left breast was normal. 02/20/18 - CT Scans C/A/P and Bone Scan Completed: Bone scan revealed a focal uptake in the left lateral third rib, felt to be non specific as the CT scan did not correlate and CT scans negtative metastatic disease Echocardiogram normal EF 03/06/18 - Started marcelle-adjuvant treatment with Dose Dense AC, in which she had difficulties with toleration of constipation, anxiety and nausea. She completed 4 of 4 cycles on 04/17/18. On 05/01/18 - She was started on weekly taxol, goal is 12 treatments of weekly taxol, she is status post 3rd treatment on 05/15/18. She has been tolerating weekly taxol better than the dose dense AC portion of systemic treatment. She called the office on Saturday during closing time and stated she has had low grade fevers all week, less than 100.4 but greater than 100. Although on Saturday afternoon spiked to 101. A prescription for levaquin was sent to pharmacy instructed to take one Saturday night and saturday morning, although by Saturday afternoon, even with tylenol her fevers were still greater than 100.4, therefore she was advised for further evaluation at [facility] ED. She denied any difficulties urinarting, did have a non-productive cough, mild congestion, sores in nose in which she was recently prescribed acyclovir for (has not started). UA appears to be positive for UTI, Cxray neg for acute etiology. Her fevers are still high the past 24 hours on Rocephin. Awaiting blood cultures and urine culture to result. Patient seen in consultation she is wearing oxygen at 2L and saturation 90-92%, she has increased respiratory effort and tachycardia. She complains of dry cough thats been persistent the past week and increased shortness of breath especially with an exertion. Dr. Padilla was present and we discussed antibiotics and CTA. to rule out PE. Review of Systems A 14 point review of systems assessed and completed and all negative except HPI. Past Medical History Past Medical History: Cancer Additional Past Medical History / Comment(s): "migraines a couple times a week" , breast cancer History of Any Multi-Drug Resistant Organisms: None Reported Past Surgical History: Section Additional Past Surgical History / Comment(s): x1 Past Anesthesia/Blood Transfusion Reactions: No Reported Reaction Past Psychological History: No Psychological Hx Reported Smoking Status: Never smoker Past Alcohol Use History: None Reported Past Drug Use History: None Reported - Past Family History Mother Family Medical History: Cancer, COPD, Dementia Additional Family Medical History / Comment(s): "mother may have had breast cancer". Mother at 76 related to dementia. Maternal aunt had breast cancer that went metastatic Father Family Medical History: Myocardial Infarction ([place]) Additional Family Medical History / Comment(s): in 1996 age of 52 Daughter(s) Family Medical History: No Reported History Brother(s) Family Medical History: No Reported History Medications and Allergies Home Medications Medication Instructions Recorded Confirmed Type Levofloxacin [Levaquin] 500 mg PO DAILY 05/17/18 05/17/18 History Allergies Allergy/AdvReac Type Severity Reaction Status Date / Time No Known Allergies Allergy Verified 05/17/18 16:03 Physical Exam Vitals: Vital Signs Temp Pulse Pulse Resp BP BP Pulse Ox 05/18/18 13:15 100.4 F H 119 H 22 122/61 94 L 05/18/18 12:55 99.3 F 05/18/18 05:04 99.3 F 05/18/18 04:53 100.9 F H 109 H 20 102/60 94 L 05/18/18 00:59 99.4 F 05/18/18 00:00 20 05/17/18 20:00 98.0 F 86 20 93/59 95 05/17/18 19:23 99.3 F 86 18 106/67 98 05/17/18 18:52 99 F 95 18 108/64 97 05/17/18 18:29 96 18 106/70 98 05/17/18 17:42 100.9 F H 99 18 112/65 96 05/17/18 16:54 94 18 96/71 100 05/17/18 16:25 100.2 F H Intake and Output 05/18/18 05/18/18 05/18/18 06:59 14:59 22:59 Intake Total 1560 1200 Balance 1560 1200 Intake: Intake, IV Titration 1200 1200 Amount Sodium Chloride 0.9% 1, 1200 1200 000 ml @ 150 mls/hr IV . Q6H40M BREANA Rx#:[id number] Oral 360 Other: # Voids 1 Gen: Alert No acute distress Head: NC/NT Neck Supple Mucous Membranes: Dry, Nasal Passage with lesions, dry Heart: Tachy Regulat Lungs: CTA bilateral, increased effort Abdomen S/ND/NT Extreemities no rash no edema Neuro- anxious, non focal. Results CBC & Chem 7: 05/18/18 12:25 05/18/18 12:25 Labs: Abnormal Lab Results - Last 24 Hours (Table) 05/17/18 05/17/18 05/17/18 Range/Units 16:15 16:15 16:20 WBC 2.5 L (3.8-10.6) k/uL RBC 2.99 L (3.80-5.40) m/uL Hgb 9.6 L (11.4-16.0) gm/dL Hct 27.9 L (34.0-46.0) % RDW 18.1 H (11.5-15.5) % Lymphocytes # 0.2 L (1.0-4.8) k/uL Sodium 133 L (137-145) mmol/L Potassium 3.3 L (3.5-5.1) mmol/L BUN (7-17) mg/dL Creatinine (0.52-1.04) mg/dL Glucose (74-99) mg/dL Delta Bilirubin 0.3 H (0.0-0.2) mg/dL Alkaline Phosphatase (38-126) U/L Total Protein 6.1 L (6.3-8.2) g/dL Albumin (3.5-5.0) g/dL Urine Ketones 1+ H (Negative) Urine Blood Moderate H (Negative) Ur Leukocyte Esterase Moderate H (Negative) Urine RBC 13 H (0-5) /hpf Urine WBC 9 H (0-5) /hpf Ur Squamous Epith Cells 5 H (0-4) /hpf Urine Bacteria Rare H (None) /hpf Urine Mucus Few H (None) /hpf 05/18/18 05/18/18 Range/Units 12:25 12:25 WBC 3.1 L (3.8-10.6) k/uL RBC 2.96 L (3.80-5.40) m/uL Hgb 9.2 L (11.4-16.0) gm/dL Hct 27.3 L (34.0-46.0) % RDW 18.0 H (11.5-15.5) % Lymphocytes # 0.3 L (1.0-4.8) k/uL Sodium (137-145) mmol/L Potassium (3.5-5.1) mmol/L BUN 6 L (7-17) mg/dL Creatinine 0.45 L (0.52-1.04) mg/dL Glucose 101 H (74-99) mg/dL Delta Bilirubin (0.0-0.2) mg/dL Alkaline Phosphatase 37 L (38-126) U/L Total Protein 5.1 L (6.3-8.2) g/dL Albumin 2.9 L (3.5-5.0) g/dL Urine Ketones (Negative) Urine Blood (Negative) Ur Leukocyte Esterase (Negative) Urine RBC (0-5) /hpf Urine WBC (0-5) /hpf Ur Squamous Epith Cells (0-4) /hpf Urine Bacteria (None) /hpf Urine Mucus (None) /hpf Microbiology - Last 24 Hours (Table) 05/17/18 14:20 Urine Culture - Preliminary Urine,Voided Chest x-ray: report reviewed CT scan - abdomen: report reviewed CT scan - pelvis: report reviewed Assessment and Plan Plan: Assessment and Recommendations: 1. Invasive Lobular Right Breast Cancer: - Currently in treatment: Status Post 4 cycles of Dose Dense AC, and 3 of 12 treatments of weekly Taxol, last on 05/15/18 - Poor toleration with first portion of chemotherapy related to persistent constipation and nausea - Taxol on hold until after current acute infectious process resolved - Follow-up with Dr. Woodard prior to restarting chemotherapy 2. Febrile: T-Max 24 hours on abx 100.9 - Butler to be source from UTI, although awaiting cultures, and Blood cultures to result - Chest Xray no acute process noted - ID is consulted and discussed abx coverage with Dr Padilla - ?viral lesions in nasal passage 3. Abdominal Pain and Nausea/Constipation: - CT abd/Pelvis - WNL 4. Tachycardia - Reactive to fevers 5. Anxiety/Depression 6. Pancytopenia - Secondary to chemotherapy - Should show recovery moving forward, monitor CBC daily Plan: Continue Supportive management - Monitor CBC and electrolytes - Bowel regimen Aggressive - Await Cultures - CTA for assessment of PE Physician Attest: I have discussed the complete history and physical and developed the complete impression and plan, agree with dictation dictated as a scribe.
[2018-05-18] MEDS: LEVOFLOXACIN 750MG-D5W PMX 750 MG in DEXTROSE/WATER 1 150ML.BAG IVPB SCH (19:23)
--- NOTE | 2018-05-18 20:12 | CONS ---
CONSULTATION DATE OF SERVICE: 05/18/2018. REASON FOR CONSULTATION: Febrile neutropenia. HISTORY OF PRESENT ILLNESS: The patient is a 48-year-old female with past medical history significant for invasive lobular carcinoma right breast diagnosed December 2017 for which the patient is currently on chemotherapy. The patient has completed 7 cycles out of total of 16 treatment and has been getting chemo every for the last 3 weeks. The patient said when she went for her chemo this she did have a low-grade fever. She did receive the chemotherapy and did not have significant symptoms that evening. The patient says she went to work Saturday the next day and could not keep herself warm. She felt cold all day and when she came home, she noticed to have a fever of 101.4 degrees Fahrenheit. The patient did call the nurse practitioner for the oncology and the patient was started on Levaquin. She took her dose of Levaquin on Saturday night and then Saturday morning and afterwards the patient continued to have a fever with rigors and chills. The patient did have a dry irritating cough that has been going off for more than a week or 2. However, it is [id number] in intensity. The patient denies having any chest pain associated with it or any sputum production. Some shortness of breath though and did require oxygenation on arrival to the ER. The patient denies any other URI symptom of runny nose or sore throat. Denies having any chest pain. No abdominal pain. No diarrhea. The patient is constipated and did receive a laxative and did have a bowel movement. No significant burning or frequency of urine. The patient did have a right chest wall MediPort that was last accessed on for chemo and did not have any symptoms before that. On presentation to the ER last evening the patient did have fever of 100.9 and did spike another fever of 100.9 early this morning with 100.4 this afternoon. Workup in the ER did include a chest x-ray was negative for any acute cardiopulmonary process. A CT of abdomen and pelvis was obtained without oral but with IV contrast. Did not show any acute abnormality. The patient white count was slightly leukopenic, white count 2.5. Liver enzymes are normal. UA was positive with moderate leukocyte esterases and 9 WBCs and rare bacteria. Influenza A and B PCR were negative. The patient was started on Rocephin and admitted hospital. Infectious Disease was consulted for further recommendation regarding antibiotic therapy. REVIEW OF SYSTEMS: Positive points have been mentioned in HPI. Rest of the system has been negative. PAST MEDICAL HISTORY: Right-sided breast cancer, migraine headache. PAST SURGICAL HISTORY: , breast biopsy and Mediport placement. SOCIAL HISTORY: No history of smoking, drinking or drug use. She is . 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 FAMILY HISTORY: Mother with history of breast cancer, COPD, dementia. Father with history of [place]. ALLERGIES: No known drug allergies. MEDICATION: Medications include the patient is currently on Rocephin 1 g daily. He is on lactulose, Pepcid, Tylenol, and IV fluid. PHYSICAL EXAMINATION: Blood pressure is 102/51 with a pulse of 90, temperature 100.4. She is 94% on room air. General description is a middle-aged female up in the bed in no distress. No tachypnea or accessory muscle of respiration use. HEENT: Shows pallor, no scleral icterus. Oral mucosa membrane is dry. No pharyngeal erythema or thrush. NECK: Trachea central. No thyromegaly. LUNGS: Unlabored breathing. Clear to auscultation. No wheeze or crackle. HEART: S1, S2. Regular rate and rhythm. ABDOMEN: Soft, showing mildly tender right upper quadrant area. No guarding or rigidity. EXTREMITIES: No edema feet. SKIN EXAMINATION: No rash or mass palpable. NEUROLOGICAL: Patient is awake, alert, oriented x3. Mood and affect normal. LABS: Hemoglobin 9.2, white count 3.1, BUN of 6, creatinine 0.44. Electrolytes are normal. Liver enzymes are normal. UA has been positive. Cultures currently pending. CT abdomen and pelvis and chest x-ray report as mentioned above. DIAGNOSTIC IMPRESSION AND PLAN: Patient admitted to the hospital with sepsis in this patient who did have a fever, tachycardia, leukopenia. This patient, however, is immunocompromised and currently undergoing chemotherapy for breast cancer. Last chemo has been about 3 days ago with positive findings including a positive UA and slight tenderness in the right upper quadrant area. However, the patient did have a CT of abdomen and pelvis that was reported negative for any abnormality on the liver and gallbladder area. PLAN: 1. Discontinue Rocephin. 2. Start the patient on cefepime 2 g every 12 hours and Levaquin. 3. A CT angiogram is being ordered by Oncology and this will be followed. 4. We will follow up on clinical condition as well as cultures to further adjust medication if needed. Thank you for this consultation. Will follow this patient along with you. VERNA / KASHMIRN: [id number] /
[2018-05-18] MEDS: CEFEPIME 2 GM in SODIUM CHLORIDE 0.9% 100 ML IVPB SCH (21:26)
--- NOTE | 2018-05-18 22:02 | CT ---
CT CHEST FOR PULMONARY EMBOLISM. EXAMINATION TYPE: CT angio chest DATE OF EXAM: 05/18/2018 INDICATION: Persistent cough, hypoxia, fever. CT DLP: 177.9 mGycm, Automated exposure control for dose reduction was used. CONTRAST: Patient injected with 100 mL of Isovue 370. COMPARISON: 03/13/2018 TECHNIQUE: CT of the chest is performed on a spiral scan at 2 mm thick sections. Study is performed with intravenous contrast timed for evaluation for pulmonary embolism. This will limit additional po rtions of the evaluation. 3-D MIP images reconstructed by the technologist are reviewed on the compu ter in the coronal and sagittal planes. FINDINGS: No persistent filling defects are evident to suggest an acute pulmonary embolism. No mediastinal or hilar adenopathy enlarged by CT criteria is evident. The ascending aorta diameter at the level of the main pulmonary artery is 3.2 cm. The main pulmonary artery diameter at the bifur cation is 2.9 cm. There is extensive groundglass opacities in the upper and midlung rodrigues compatible some pulmonary ed david. Suspicious consolidation or pneumonia is not evident. Limited CT section through the upper abdomen are unremarkable. IMPRESSIONS: 1. No acute pulmonary embolism. 2. Patency is predominantly within the upper lung rodrigues perihilar regions suggestive for pulmonary e nico.
[2018-05-19] MEDS: SODIUM CHLORIDE 0.9% 1,000 ML IV SCH ×2 (04:24→10:42)
[2018-05-19 08:29] LABS: Anisocytosis Slight; Basophils % (A) 0 %; Eosinophils % (A) 2 %; HCT 24.2 % (34.0-46.0); HGB 8.3 gm/dL (11.4-16.0); Hypochromasia Slight; Lymphocytes # (A) 0.2 k/uL (1.0-4.8); Lymphocytes % (A) 10 %; MCH 31.9 pg (25.0-35.0); MCHC 34.2 g/dL (31.0-37.0); MCV 93.2 fL (80.0-100.0); Mean Platelet Volume 7.5; Monocytes # (A) 0.1 k/uL (0-1.0); Monocytes % (A) 6 %; Neutrophils % (A) 81 %; Platelet Count 178 k/uL (150-450); Poikilocytosis Moderate; RDW 17.3 % (11.5-15.5); WBC 2.4 k/uL (3.8-10.6)
[2018-05-19] MEDS: FAMOTIDINE 20 MG TAB PO SCH (08:31)
[2018-05-19] MEDS: CEFEPIME 2 GM in SODIUM CHLORIDE 0.9% 100 ML IVPB SCH ×2 (08:31→22:36)
[2018-05-19] MEDS ORDERED: BENZOCAINE/MENTHOL LOZENG 1 EACH LOZENGE MUCOUS MEM PRN (10:19)
[2018-05-19] MEDS ORDERED: BENZONATATE 100 MG CAP PO PRN (10:19)
--- NOTE | 2018-05-19 10:40 | P.PN ---
Subjective Progress Note Date: 05/19/18 Principal diagnosis: Fever, on chemo for breast cancer In follow-up today patient continues to feel unwell, she had a T-max of 100.9 overnight, currently her cultures are negative at 24 hours, CTA was negative for PE. Patient hasn't ongoing dry, nagging cough, this causes a headache. Appetite is poor, no nausea or vomiting, chest pain or palpitations, abdominal pain, dysuria, hematuria diarrhea or constipation. Patient can walk to the restroom, feeling weak denies dizziness or syncope. Objective - Vital Signs Vital signs: Vital Signs Temp 99.2 F 05/19/18 05:00 Pulse 82 05/19/18 05:00 Resp 16 05/19/18 05:00 BP 109/69 05/19/18 05:00 Pulse Ox 99 05/19/18 05:00 Intake & Output 05/18/18 05/19/18 05/19/18 18:59 06:59 18:59 Intake Total 1200 3010 Balance 1200 3010 Intake: Intake, IV Titration 1200 2050 Amount Cefepime 2 gm In Sodium 100 Chloride 0.9% 100 ml @ 200 mls/hr IVPB Q12HR BREANA Rx#:[id number] Levofloxacin 750Mg-D5w 150 Pmx 750 mg In Dextrose/ Water 1 150ml.bag @ 100 mls/hr IVPB Q24H BREANA Rx#: [id number] Sodium Chloride 0.9% 1, 1200 1800 000 ml @ 150 mls/hr IV . Q6H40M BREANA Rx#:[id number] Oral 960 Other: Voiding Method Toilet Toilet # Voids 2 - Constitutional Constitutional Comment(s): Patient looks fatigued General appearance: Present: average body habitus, cooperative, no acute distress - EENT Eyes: Present: anicteric sclerae, EOMI ENT: Present: hearing grossly normal, normal oropharynx - Respiratory Respiratory: bilateral: CTA - Cardiovascular Rhythm: regular Heart sounds: normal: S1, S2 Abnormal Heart Sounds: Absent: systolic murmur, diastolic murmur, rub, S3 Gallop , S4 Gallop, click, other - Peripheral edema leg Peripheral Edema: bilateral: Trace - Gastrointestinal General gastrointestinal: Present: normal bowel sounds, soft. Absent: absent bowel sounds, decreased bowel sounds, distended, hepatomegaly, hyperactive bowel sounds, organomegaly, rigid, scaphoid, splenomegaly, tenderness, umbilical hernia, ventral hernia - Neurologic Neurologic: Present: CNII-XII intact - Musculoskeletal Musculoskeletal: Present: generalized weakness, strength equal bilaterally - Psychiatric Psychiatric: Present: A&O x's 3, appropriate affect, intact judgment & insight - Labs CBC & Chem 7: 05/19/18 08:11 05/18/18 12:25 Labs: Abnormal Lab Results - Last 24 Hours (Table) 05/18/18 05/18/18 05/19/18 Range/Units 12:25 12:25 08:11 WBC 3.1 L 2.4 L (3.8-10.6) k/uL RBC 2.96 L 2.60 L (3.80-5.40) m/uL Hgb 9.2 L 8.3 L (11.4-16.0) gm/dL Hct 27.3 L 24.2 L (34.0-46.0) % RDW 18.0 H 17.3 H (11.5-15.5) % Lymphocytes # 0.3 L 0.2 L (1.0-4.8) k/uL BUN 6 L (7-17) mg/dL Creatinine 0.45 L (0.52-1.04) mg/dL Glucose 101 H (74-99) mg/dL Alkaline Phosphatase 37 L (38-126) U/L Total Protein 5.1 L (6.3-8.2) g/dL Albumin 2.9 L (3.5-5.0) g/dL Microbiology - Last 24 Hours (Table) 05/17/18 14:20 Urine Culture - Final Urine,Voided 05/17/18 16:15 Blood Culture - Preliminary Blood No Growth after 24 hours - Imaging and Cardiology CT scan - chest: report reviewed Assessment and Plan (1) Sepsis Narrative/Plan: Persistent fever, on abx, ID following. UA was suspicious, culture pending. Blood cultures negative at 24 hours, awaiting completion. Influenza negative Imaging of the lungs state groundglass opacities and pulmonary edema. Patient has no symptoms to suggest congestive heart failure, which can present with similar symptoms. Suspicion is for either a viral syndrome or, there are a very few cases reported in the literature, a chemical-induced pneumonitis from the Taxol that she received. The treatment for either of these situations is supportive care and prevention of bacterial infection by treating with abx so, treatment will continue as prescribed. If patient's symptoms do not resolve adequately within 2-3 days may need Pulmonary consultation for possible bronch and specimen collection of patient's lung tissue to determine the underlying cause. Current Visit: Yes Status: Acute Priority: High Code(s): A41.9 - SEPSIS, UNSPECIFIED ORGANISM SNOMED Code(s): 47644294 (2) Leukopenia Narrative/Plan: Secondary to chemotherapy. Continue granulocyte stimulating factor for today. Current Visit: Yes Status: Acute Priority: High Code(s): D72.819 - DECREASED WHITE BLOOD CELL COUNT, UNSPECIFIED SNOMED Code(s): 90586027 (3) UTI (urinary tract infection) Narrative/Plan: Urinary analysis was suspicious, cultures pending. Infectious Disease following. Empiric antibiotics ordered. T-max of 100.9 overnight, ongoing monitoring. Current Visit: Yes Status: Acute Priority: High Code(s): N39.0 - URINARY TRACT INFECTION, SITE NOT SPECIFIED SNOMED Code(s): 75039777 (4) Breast cancer Narrative/Plan: Pt treatment is on hold until current condition adequately resolved Current Visit: Yes Status: Acute Priority: Medium Code(s): C50.919 - MALIGNANT NEOPLASM OF UNSP SITE OF UNSPECIFIED FEMALE BREAST SNOMED Code(s): 519871026 (5) Antineoplastic chemotherapy induced anemia Narrative/Plan: Moderate, normocytic, normochromic anemia. I believe anemia workup has been evaluated in the office but, will confirm and order labs if necessary. No transfusion needed today. Current Visit: Yes Status: Acute Priority: Medium Code(s): D64.81 - ANEMIA DUE TO ANTINEOPLASTIC CHEMOTHERAPY; T45.1X5A - ADVERSE EFFECT OF ANTINEOPLASTIC AND IMMUNOSUP DRUGS, INIT SNOMED Code(s): 621963528 Plan: Doctor attests: I performed a history and physical examination of this patient with dictator, developed impression and plan of care of patient. I agree with dictators note, documented as a scribe.
[2018-05-19] MEDS ORDERED: FUROSEMIDE 10 MG/ML 2 ML VIAL IV ONE (12:30)
--- NOTE | 2018-05-19 17:09 | PN ---
PROGRESS NOTE DATE OF SERVICE: 05/19/2018. REASON FOR FOLLOWUP: Fever and possible UTI. INTERVAL HISTORY: The patient overall feels better and has improved. The patient complaining of dry irritating cough with mild to moderate intensity, not able to bring up any sputum. No chest pain. No nausea, no vomiting. No abdominal pain. No diarrhea. PHYSICAL EXAMINATION: Blood pressure 104/67, pulse of 95, temperature 98.3. She is 98% on 2 L nasal cannula. General description is a middle-aged female up in the bed in no distress. Respiratory system: Unlabored breathing with decreased breath sounds in the bases. No wheeze. Heart S1, S2. Regular rate and rhythm. Abdomen soft. No tenderness. Extremities: No edema of the feet. LABS: Hemoglobin 8.8, white count 2.4, BUN of 6, creatinine 0.45. DIAGNOSTIC IMPRESSION AND PLAN: Patient admitted to the hospital with a fever with this recent chemotherapy in an immunocompromised patient. Patient is currently covered on cefepime and Levaquin. CT angiogram was negative for PE. Check for future possible CHF with urine culture so far negative. No other clinical focus of infection. MMODL / IJN: [id number] /
--- NOTE | 2018-05-19 19:31 | US ---
EXAMINATION TYPE: US venous doppler duplex LE BI DATE OF EXAM: 05/19/2018 4:32 PM COMPARISON: NONE CLINICAL HISTORY: fever unknown origin. Pain SIDE PERFORMED: Bilateral TECHNIQUE: The lower extremity deep venous system is examined utilizing real time linear array sonog mendoza with graded compression, doppler sonography and color-flow sonography. VESSELS IMAGED: External Iliac Vein (EIV) Common Femoral Vein Deep Femoral Vein Greater Saphenous Vein * Femoral Vein Popliteal Vein Small Saphenous Vein * Proximal Calf Veins (* superficial vessels) Right Leg: Negative for DVT Left Leg: Negative for DVT No evidence of DVT bilateral legs. IMPRESSION: Normal bilateral leg duplex venous sonogram.
[2018-05-19] MEDS: LEVOFLOXACIN 750MG-D5W PMX 750 MG in DEXTROSE/WATER 1 150ML.BAG IVPB SCH (19:54)
[2018-05-20] MEDS: CEFEPIME 2 GM in SODIUM CHLORIDE 0.9% 100 ML IVPB SCH ×2 (09:27→20:32)
[2018-05-20 09:41] VITALS: BMI 25.7
--- NOTE | 2018-05-20 09:42 | P.PN ---
Subjective Progress Note Date: 05/19/18 This is a 48-year-old female who presented to the emergency department complaining of fever at home. Patient has past medical history of active breast cancer on chemotherapy every for the last 3 weeks for a total of 16 treatments she has completed 7 cycles. Patient developed a fever at home and called her oncologist Dr. Woodard who put her on levofloxacin starting yesterday. Patient took 2 doses and continued to be febrile. She presented with a nonproductive cough, generalized abdominal pain with constipation. Her last bowel movement was approximately 3 days prior. She denied any chest pain shortness of breath or urinary symptoms. At this time patient is resting comfortably and continues to have no complaints. Her urine analysis showed positive UTI. Patient past medical history includes breast carcinoma without lymph node involvement, migraines, IBS. 05/19: Patient denies any new complaints. Dr. Padilla is following with recommendations for cefepime and Levaquin. CT angiogram of the chest was negative for PE. Oncology has ordered bilateral lower extremity ultrasounds. Patient given 1 dose of IV Lasix 20 mg and echocardiogram ordered as well as repeat chest x-ray. IV fluids changed to saline lock. Review Of Systems: Constitutional: Reports fever, no chills, no night sweats. No weight change. No weakness, reports fatigue no lethargy. EENT: No headache. No blurred vision or double vision, no loss of vision. No loss of Hearing, no ringing in the ears, no dizziness. No nasal drainage or congestion. No epistaxis. No sore throat. Lungs: No shortness of breath, reports cough, no sputum production. No wheezing. Cardiovascular: No chest pain, no lower extremity edema. No palpitations. No paroxysmal nocturnal dyspnea. No orthopnea. No lightheadedness or dizziness. No syncopal episodes. Abdominal: no abdominal discomfort. No nausea, vomiting. no diarrhea. Report constipation. No bloody or tarry stools. Report Decrease appetite. Genitourinary: No dysuria, increased frequency, urgency. No urinary retention. Musculoskeletal: No myalgias. No muscle weakness, no gait dysfunction, no frequent falls. No back pain. No neck pain. Integumentary: No wounds, no lesions. No rash or pruritus. No unusual bruising. No change in hair or nails. Neurologic: No aphasia. No facial droop. No change in mentation. No head injury. No headache. No paralysis. No paresthesia. Psychiatric: No depression. No anxiety. No mood swings. Endocrine: No abnormal blood sugars. No weight change. No excessive sweating or thirst. Objective - Vital Signs Vital signs: Vital Signs Temp 99.2 F 05/19/18 05:00 Pulse 82 05/19/18 05:00 Resp 16 05/19/18 05:00 BP 109/69 05/19/18 05:00 Pulse Ox 99 05/19/18 05:00 Intake & Output 05/18/18 05/19/18 05/19/18 18:59 06:59 18:59 Intake Total 1200 3010 Balance 1200 3010 Intake: Intake, IV Titration 1200 2050 Amount Cefepime 2 gm In Sodium 100 Chloride 0.9% 100 ml @ 200 mls/hr IVPB Q12HR [facility] Rx#:[id number] Levofloxacin 750Mg-D5w 150 Pmx 750 mg In Dextrose/ Water 1 150ml.bag @ 100 mls/hr IVPB Q24H [facility] Rx#: [id number] Sodium Chloride 0.9% 1, 1200 1800 000 ml @ 150 mls/hr IV . Q6H40M [facility] Rx#:[id number] Oral 960 Other: Voiding Method Toilet Toilet # Voids 2 - Exam General Appearance: Alert, cooperative, no distress, appears younger stated age. Patient resting in bed and appears to be comfortable. Neck HEENT: Supple, no lymphadenopathy, no thyroid enlargement, no carotid bruits. Lungs: Clear to auscultation without crackles or wheezes no rhonchi, no deformity. Chest Wall: Chest wall normal expansion with deep inspiration no tenderness and no deformity was found on exam, no costochondral pain or discomfort. Heart: Regular rate and rhythm, S1, S2 normal, no murmur, rub or gallop. Back: Symmetric, no curvature, ROM normal, no CVA tenderness. Abdomen: Soft, non-tender, no rebound or rigidity, no hepatosplenomegaly. Extremities: Extremities normal, atraumatic, no cyanosis or edema. Pulses: 2+ and symmetric. Skin: Skin color, texture, tugor normal, no rashes or lesions. Neurologic: Alert oriented x3 cranial nerves II through XII intact, no motor deficit, no abnormal balance or gait - Labs CBC & Chem 7: 05/19/18 08:11 05/18/18 12:25 Labs: Abnormal Lab Results - Last 24 Hours (Table) 05/18/18 05/18/18 05/19/18 Range/Units 12:25 12:25 08:11 WBC 3.1 L 2.4 L (3.8-10.6) k/uL RBC 2.96 L 2.60 L (3.80-5.40) m/uL Hgb 9.2 L 8.3 L (11.4-16.0) gm/dL Hct 27.3 L 24.2 L (34.0-46.0) % RDW 18.0 H 17.3 H (11.5-15.5) % Lymphocytes # 0.3 L 0.2 L (1.0-4.8) k/uL BUN 6 L (7-17) mg/dL Creatinine 0.45 L (0.52-1.04) mg/dL Glucose 101 H (74-99) mg/dL Alkaline Phosphatase 37 L (38-126) U/L Total Protein 5.1 L (6.3-8.2) g/dL Albumin 2.9 L (3.5-5.0) g/dL Microbiology - Last 24 Hours (Table) 05/17/18 14:20 Urine Culture - Final Urine,Voided 05/17/18 16:15 Blood Culture - Preliminary Blood No Growth after 24 hours Assessment and Plan Plan: 1. Sepsis related to urinary tract infection. Obtain urine culture, consult with Dr. Randy cooper. Patient is currently on cefepime and Levaquin. 2. Leukopenia possibly neutropenia related to chemotherapy. Same as #1, 3. Generalized weakness. Same as #1 4. Fever. acetaminophen 1000 mg by mouth every 6 hours 5. Constipation. Lactulose 50 mg by mouth once as needed for when necessary, Colace as needed, MiraLAX 17 g as needed 6. Migraine stable 7. GI prophylaxis. Pepcid 20 mg [id number] 8. DVT prophylaxis. Ambulation CODE STATUS: Full code Discharge plan: Home Impression and plan of care have been directed as dictated by the signing physician. Kayla Anderson nurse practitioner acting as scribe for signing physician.
[2018-05-20] MEDS: FAMOTIDINE 20 MG TAB PO SCH (10:10)
--- NOTE | 2018-05-20 11:18 | ECHOF ---
Referral Reason:lvfunction MEASUREMENTS -------- HEIGHT: 160.0 cm WEIGHT: 65.8 kg BP: 104/67 RVIDd: 2.2 cm (< 3.3) IVSd: 0.7 cm (0.6 - 1.1) LVIDd: 4.1 cm (3.9 - 5.3) LVPWd: 1.0 cm (0.6 - 1.1) IVSs: 1.2 cm LVIDs: 2.4 cm LVPWs: 1.3 cm LAESV Index (A-L): 18.86 ml/m Ao Diam: 3.0 cm (2.0 - 3.7) AV Cusp: 1.5 cm (1.5 - 2.6) LA Diam: 2.7 cm (2.7 - 3.8) MV EXCURSION: 16.095 mm (> 18.000) MV EF SLOPE: 82 mm/s (70 - 150) EPSS: 0.9 cm MV E Elvin: 0.60 m/s MV DecT: 163 ms MV A Elvin: 0.75 m/s MV E/A Ratio: 0.80 AV maxP.41 mmHg AV meanP.13 mmHg RAP: 5.00 mmHg RVSP: 19.38 mmHg FINDINGS -------- Resting tachycardia (HR>100bpm). This was a technically good study. The left ventricular size is normal. Left ventricular wall thickness is normal. Overall left vent ricular systolic function is low-normal with, an EF between 50 - 55 %. Basal inferior LV wall motio n is hypokinetic. The right ventricle is normal in size and function. Normal LA size by volume 22+/-6 ml/m2. The right atrium is normal in size. Peak/mean gradient across the Aortic Valve is 11.41mmHg / 7.13mmHg. Can't exclude possible Bicuspid Aov. The mitral valve leaflets are mildly thickened. There is trace mitral regurgitation. Trace tricuspid regurgitation present. The right ventricular systolic pressure, as measured by Dopp ler, is 19.38mmHg. Trace/mild (physiologic) pulmonic regurgitation. The aortic root size is normal. Normal inferior vena cava with normal inspiratory collapse consistent with estimated right atrial pre ssure of 5 mmHg. The pericardium is normal. CONCLUSIONS -------- 1. Resting tachycardia (HR>100bpm). 2. This was a technically good study. 3. The left ventricular size is normal. 4. Left ventricular wall thickness is normal. 5. Overall left ventricular systolic function is low-normal with, an EF between 50 - 55 %. 6. Basal inferior LV wall motion is hypokinetic. 7. The right ventricle is normal in size and function. 8. Normal LA size by volume 22+/-6 ml/m2. 9. The right atrium is normal in size. 10. Peak/mean gradient across the Aortic Valve is 11.41mmHg / 7.13mmHg. 11. Can't exclude possible Bicuspid Aov. 12. The mitral valve leaflets are mildly thickened. 13. There is trace mitral regurgitation. 14. Trace tricuspid regurgitation present. 15. The right ventricular systolic pressure, as measured by Doppler, is 19.38mmHg. 16. Trace/mild (physiologic) pulmonic regurgitation. 17. The aortic root size is normal. 18. Normal inferior vena cava with normal inspiratory collapse consistent with estimated right atrial pressure of 5 mmHg. 19. The pericardium is normal. PERSONAL CHEF: Martine Hutchinson RDCS
[2018-05-20 14:06] LABS: Immunoglobulin M 36.2 mg/dL (40.0-280.0)
--- NOTE | 2018-05-20 15:29 | P.PN ---
Subjective Progress Note Date: 05/20/18 This is a 48-year-old female who presented to the emergency department complaining of fever at home. Patient has past medical history of active breast cancer on chemotherapy every for the last 3 weeks for a total of 16 treatments she has completed 7 cycles. Patient developed a fever at home and called her oncologist Dr. Woodard who put her on levofloxacin starting yesterday. Patient took 2 doses and continued to be febrile. She presented with a nonproductive cough, generalized abdominal pain with constipation. Her last bowel movement was approximately 3 days prior. She denied any chest pain shortness of breath or urinary symptoms. At this time patient is resting comfortably and continues to have no complaints. Her urine analysis showed positive UTI. Patient past medical history includes breast carcinoma without lymph node involvement, migraines, IBS. 05/19: Patient denies any new complaints. Dr. Padilla is following with recommendations for cefepime and Levaquin. CT angiogram of the chest was negative for PE. Oncology has ordered bilateral lower extremity ultrasounds. Patient given 1 dose of IV Lasix 20 mg and echocardiogram ordered as well as repeat chest x-ray. IV fluids changed to saline lock. 05/20: Bilateral lower extremity ultrasound negative for DVT. Patient states she is less short of breath today. She did get some good urine output after receiving Lasix yesterday. She states she still has a cough though. She has had a normal bowel movement. Echocardiogram has been done which revealed EF of 50-55%, trace mitral regurgitation, trace tricuspid regurgitation. She has been afebrile for greater than 24 hours, heart rate running in the 90s, blood pressure 96/64, pulse ox 94% on room air. Review Of Systems: Constitutional: Reports fever, no chills, no night sweats. No weight change. Reports weakness, reports fatigue no lethargy. EENT: No headache. No blurred vision or double vision, no loss of vision. No loss of Hearing, no ringing in the ears, no dizziness. No nasal drainage or congestion. No epistaxis. No sore throat. Lungs: Reports shortness of breath, reports cough, no sputum production. No wheezing. Cardiovascular: No chest pain, no lower extremity edema. No palpitations. No paroxysmal nocturnal dyspnea. No orthopnea. No lightheadedness or dizziness. No syncopal episodes. Abdominal: no abdominal discomfort. No nausea, vomiting. no diarrhea. Report constipation. No bloody or tarry stools. Report Decrease appetite. Genitourinary: No dysuria, increased frequency, urgency. No urinary retention. Musculoskeletal: No myalgias. No muscle weakness, no gait dysfunction, no frequent falls. No back pain. No neck pain. Integumentary: No wounds, no lesions. No rash or pruritus. No unusual bruising. No change in hair or nails. Neurologic: No aphasia. No facial droop. No change in mentation. No head injury. No headache. No paralysis. No paresthesia. Psychiatric: No depression. No anxiety. No mood swings. Endocrine: No abnormal blood sugars. No weight change. No excessive sweating or thirst. Objective - Vital Signs Vital signs: Vital Signs Temp 98.6 F 05/20/18 05:00 Pulse 94 05/20/18 05:00 Resp 16 05/20/18 05:00 BP 102/68 05/20/18 05:00 Pulse Ox 99 05/20/18 05:00 Intake & Output 05/19/18 05/20/18 05/20/18 18:59 06:59 18:59 Intake Total 1000 450 Balance 1000 450 Weight 65.771 kg Intake: Intake, IV Titration 1000 250 Amount Cefepime 2 gm In Sodium 100 100 Chloride 0.9% 100 ml @ 200 mls/hr IVPB Q12HR [facility] Rx#:[id number] Levofloxacin 750Mg-D5w 150 Pmx 750 mg In Dextrose/ Water 1 150ml.bag @ 100 mls/hr IVPB Q24H [facility] Rx#: [id number] Sodium Chloride 0.9% 1, 900 000 ml @ 150 mls/hr IV . Q6H40M [facility] Rx#:[id number] Oral 200 Other: Voiding Method Toilet # Voids 1 - Exam General Appearance: Alert, cooperative, no distress. Patient resting in bed and appears to be comfortable. Neck HEENT: Supple, no lymphadenopathy, no thyroid enlargement, no carotid bruits. Lungs: Clear to auscultation without crackles or wheezes no rhonchi, no deformity. Chest Wall: Chest wall normal expansion with deep inspiration no tenderness and no deformity was found on exam, no costochondral pain or discomfort. Heart: Regular rate and rhythm, S1, S2 normal, no murmur, rub or gallop. Back: Symmetric, no curvature, ROM normal, no CVA tenderness. Abdomen: Soft, non-tender, no rebound or rigidity, no hepatosplenomegaly. Extremities: Extremities normal, atraumatic, no cyanosis or edema. Pulses: 2+ and symmetric. Skin: Skin color, texture, tugor normal, no rashes or lesions. Neurologic: Alert oriented x3 cranial nerves II through XII intact, no motor deficit, no abnormal balance or gait - Labs CBC & Chem 7: 05/19/18 08:11 05/18/18 12:25 Labs: Microbiology - Last 24 Hours (Table) 05/17/18 16:15 Blood Culture - Preliminary Blood No Growth after 48 hours Assessment and Plan Plan: 1. Neutropenic fever. Urinary tract infection ruled out. Urine culture finalized with no growth, consult with Dr. Randy cooper. Patient is currently on cefepime and Levaquin. 2. Leukopenia possibly neutropenia related to chemotherapy. Same as #1, 3. Generalized weakness. Same as #1 4. Fever. acetaminophen 1000 mg by mouth every 6 hours as needed 5. Constipation. Lactulose 50 mg by mouth once as needed for when necessary, Colace as needed, MiraLAX 17 g as needed 6. Migraine stable 7. GI prophylaxis. Pepcid 20 mg [id number] 8. DVT prophylaxis. Ambulation CODE STATUS: Full code Discharge plan: Home Impression and plan of care have been directed as dictated by the signing physician. Kayla Anderson nurse practitioner acting as scribe for signing physician.
--- NOTE | 2018-05-20 16:21 | P.PN ---
Subjective Progress Note Date: 05/20/18 Principal diagnosis: Fever, on chemo for breast cancer In follow-up today patient feels a little better, no fever overnight, cultures negative at 48 hours, CTA was negative for PE, doppler was negative for DVT in BLE. Patient dry, nagging cough is persistent but less intense and fewer episodes. Taste is terrible, no nausea or vomiting, chest pain or palpitations. Objective - Vital Signs Vital signs: Vital Signs Temp 98.0 F 05/20/18 12:08 Pulse 94 05/20/18 12:08 Resp 16 05/20/18 12:08 BP 96/64 05/20/18 12:08 Pulse Ox 94 L 05/20/18 12:08 Intake & Output 05/19/18 05/20/18 05/20/18 18:59 06:59 18:59 Intake Total 1000 450 Balance 1000 450 Weight 65.771 kg Intake: Intake, IV Titration 1000 250 Amount Cefepime 2 gm In Sodium 100 100 Chloride 0.9% 100 ml @ 200 mls/hr IVPB Q12HR [facility] Rx#:[id number] Levofloxacin 750Mg-D5w 150 Pmx 750 mg In Dextrose/ Water 1 150ml.bag @ 100 mls/hr IVPB Q24H [facility] Rx#: [id number] Sodium Chloride 0.9% 1, 900 000 ml @ 150 mls/hr IV . Q6H40M [facility] Rx#:[id number] Oral 200 Other: Voiding Method Toilet Toilet # Voids 1 2 - Constitutional General appearance: Present: average body habitus, cooperative, no acute distress - EENT Eyes: Present: anicteric sclerae, EOMI ENT: Present: hearing grossly normal, normal oropharynx - Respiratory Details: deep inspiration induces cough Respiratory: bilateral: CTA, diminished (upper lobes) - Cardiovascular Heart sounds: normal: S1, S2 Abnormal Heart Sounds: Absent: systolic murmur, diastolic murmur, rub, S3 Gallop , S4 Gallop, click, other - Peripheral edema leg Peripheral Edema: bilateral: None - Gastrointestinal General gastrointestinal: Present: normal bowel sounds, soft - Integumentary Integumentary: Present: normal - Neurologic Neurologic: Present: CNII-XII intact - Musculoskeletal Musculoskeletal: Present: strength equal bilaterally - Psychiatric Psychiatric: Present: A&O x's 3, appropriate affect, intact judgment & insight - Labs CBC & Chem 7: 05/19/18 08:11 05/18/18 12:25 Labs: Abnormal Lab Results - Last 24 Hours (Table) 05/18/18 05/19/18 Range/Units 12:25 08:11 IgG 565.0 L (700.0-1600.0) mg/dL IgA 56.0 L (60.0-350.0) mg/dL IgM 36.2 L (40.0-280.0) mg/dL Microbiology - Last 24 Hours (Table) 05/17/18 16:15 Blood Culture - Preliminary Blood No Growth after 48 hours - Imaging and Cardiology Venous US: report reviewed Assessment and Plan (1) Sepsis Narrative/Plan: Persistent fever, no fever last 24 hours. Pt continues on abx, ID following. UA cult negative. Blood cultures negative at 48. Influenza negative Symptoms are better today, CXR ordered for progress study in AM. Current Visit: Yes Status: Acute Priority: High Code(s): A41.9 - SEPSIS, UNSPECIFIED ORGANISM SNOMED Code(s): 43129836 (2) Leukopenia Narrative/Plan: Secondary to chemotherapy. Pt was NOT of GCSF as documented yesterday. CBC with diff in AM Current Visit: Yes Status: Acute Priority: High Code(s): D72.819 - DECREASED WHITE BLOOD CELL COUNT, UNSPECIFIED SNOMED Code(s): 63026283 (3) UTI (urinary tract infection) Narrative/Plan: Urinary analysis was suspicious, cultures negative. Infectious Disease following, abx ordered No fever overnight, ongoing monitoring. Current Visit: Yes Status: Acute Priority: High Code(s): N39.0 - URINARY TRACT INFECTION, SITE NOT SPECIFIED SNOMED Code(s): 92401766 (4) Breast cancer Narrative/Plan: Pt treatment is on hold until current condition adequately resolved. Case is being reviewed by Oncologists, plan of care will be reviewed with pt in AM Current Visit: Yes Status: Acute Priority: Medium Code(s): C50.919 - MALIGNANT NEOPLASM OF UNSP SITE OF UNSPECIFIED FEMALE BREAST SNOMED Code(s): 745859771 (5) Antineoplastic chemotherapy induced anemia Narrative/Plan: Moderate, normocytic, normochromic anemia. Anemia workup not been done previously, labs in AM. Current Visit: Yes Status: Acute Priority: Medium Code(s): D64.81 - ANEMIA DUE TO ANTINEOPLASTIC CHEMOTHERAPY; T45.1X5A - ADVERSE EFFECT OF ANTINEOPLASTIC AND IMMUNOSUP DRUGS, INIT SNOMED Code(s): 911076801
[2018-05-20] MEDS ORDERED: LEVOFLOXACIN 750 MG TAB PO SCH (19:00)
[2018-05-20] MEDS ORDERED: MELATONIN 1 MG TAB PO SCH (21:00)
--- NOTE | 2018-05-20 23:08 | PN ---
PROGRESS NOTE DATE OF SERVICE: 05/20/2018 REASON FOR FOLLOWUP: Fever and a question of UTI/pneumonia. INTERVAL HISTORY: The patient is afebrile. The patient seemed to be breathing more comfortably. She did receive a dose of Lasix yesterday. ( ) cough has decreased in intensity and did not require any supplemental oxygen today. No nausea, no vomiting. No abdominal pain or any diarrhea. EXAMINATION: Blood pressure 136/52 with a pulse of 74, temperature 98.2, she is 92%. GENERAL DESCRIPTION: A middle-aged female up in the bed in no distress. RESPIRATORY SYSTEM: Unlabored breathing. Decreased breath sounds in the bases. No wheeze. HEART: S1, S2. Regular rate and rhythm. ABDOMEN: Soft. No tenderness. LABS: Hemoglobin 8.3, white count 2.1, BUN of 6, creatinine 0.45. Cultures have been negative so far. DIAGNOSTIC IMPRESSION AND PLAN: Patient admitted to the hospital with fever in this patient who recently did have her chemotherapy. Culture for possibly the source of positive UA. Culture has been negative so far. Chest x-ray and CT angiogram shows interstitial infiltrate, questionable fluid related and did improve with Lasix. The patient is to continue with the Levaquin as no resistant gram negative has been grown. We will discontinue changing the cefepime and monitor clinical course closely. Continue supportive care. MMODL / IJN: [id number] /
[2018-05-21] MEDS: FAMOTIDINE 20 MG TAB PO SCH (08:09)
--- NOTE | 2018-05-21 08:25 | XR ---
EXAMINATION TYPE: XR chest 2V DATE OF EXAM: 05/21/2018 COMPARISON: 05/17/2018 INDICATION: Progress study, cough TECHNIQUE: Frontal and lateral views of the chest are obtained. FINDINGS: The heart size is normal. The pulmonary vasculature is normal. The lungs are clear. Port is on the right with the tip in the distal superior vena cava right atrial junction, stable. IMPRESSION: 1. No acute pulmonary process.
[2018-05-21 09:16] LABS: Anisocytosis Slight; Poikilocytosis Moderate
[2018-05-21 09:25] LABS: Basophils % (A) 1 %; Eosinophils # (A) 0.2 k/uL (0-0.7); Eosinophils % (A) 6 %; HCT 27.4 % (34.0-46.0); HGB 9.5 gm/dL (11.4-16.0); Lymphocytes # (A) 0.3 k/uL (1.0-4.8); Lymphocytes % (A) 10 %; MCH 31.7 pg (25.0-35.0); MCHC 34.8 g/dL (31.0-37.0); MCV 91.1 fL (80.0-100.0); Mean Platelet Volume 8.3; Monocytes # (A) 0.3 k/uL (0-1.0); Monocytes % (A) 9 %; Neutrophils # (A) 2.4 k/uL (1.3-7.7); Neutrophils % (A) 72 %; Platelet Count 236 k/uL (150-450); RBC 3.01 m/uL (3.80-5.40); RDW 17.6 % (11.5-15.5); WBC 3.4 k/uL (3.8-10.6)
[2018-05-21 11:46] VITALS: BP 99/68; PULSE 99; RESP 16; TEMP 98.2
--- NOTE | 2018-05-21 12:53 | P.PN ---
Subjective Progress Note Date: 05/21/18 Principal diagnosis: Fever, on chemo for breast cancer In follow-up today patient feels better, no fevers, dry, nagging cough continues to decrease in frequency and intensity. She is tolerating oral intake without N or V, one episode of diarrhea, no other abd symptoms to report. Objective - Vital Signs Vital signs: Vital Signs Temp 98.2 F 05/21/18 11:45 Pulse 99 05/21/18 11:45 Resp 16 05/21/18 11:45 BP 99/68 05/21/18 11:45 Pulse Ox 97 05/21/18 11:45 Intake & Output 05/20/18 05/21/18 05/21/18 18:59 06:59 18:59 Intake Total 100 320 Balance 100 320 Weight 65.771 kg Intake: Intake, IV Titration 100 100 Amount Cefepime 2 gm In Sodium 100 100 Chloride 0.9% 100 ml @ 200 mls/hr IVPB Q12HR [facility] Rx#:[id number] Oral 220 Other: Voiding Method Toilet Toilet # Voids 2 2 - Constitutional General appearance: Present: average body habitus, cooperative, no acute distress - EENT Eyes: Present: anicteric sclerae, EOMI ENT: Present: hearing grossly normal, normal oropharynx - Respiratory Details: no O2, cough is dry, barking sounding Respiratory: bilateral: CTA - Cardiovascular Rhythm: regular Heart sounds: normal: S1, S2 Abnormal Heart Sounds: Absent: systolic murmur, diastolic murmur, rub, S3 Gallop , S4 Gallop, click, other - Peripheral edema leg Peripheral Edema: bilateral: None - Gastrointestinal General gastrointestinal: Present: normal bowel sounds, soft. Absent: absent bowel sounds, decreased bowel sounds, distended, hepatomegaly, hyperactive bowel sounds, organomegaly, rigid, scaphoid, splenomegaly, tenderness, umbilical hernia, ventral hernia - Integumentary Integumentary: Present: normal - Neurologic Neurologic: Present: CNII-XII intact - Musculoskeletal Musculoskeletal: Present: strength equal bilaterally - Psychiatric Psychiatric: Present: A&O x's 3, appropriate affect, intact judgment & insight - Labs CBC & Chem 7: 05/21/18 08:27 05/18/18 12:25 Labs: Abnormal Lab Results - Last 24 Hours (Table) 05/18/18 05/19/1819 Range/Units 12:25 08:11 08:27 WBC 3.4 L (3.8-10.6) k/uL RBC 3.01 L (3.80-5.40) m/uL Hgb 9.5 L (11.4-16.0) gm/dL Hct 27.4 L (34.0-46.0) % RDW 17.6 H (11.5-15.5) % Lymphocytes # 0.3 L (1.0-4.8) k/uL IgG 565.0 L (700.0-1600.0) mg/dL IgA 56.0 L (60.0-350.0) mg/dL IgM 36.2 L (40.0-280.0) mg/dL Microbiology - Last 24 Hours (Table) 05/17/18 16:15 Blood Culture - Preliminary Blood No Growth after 72 hours Assessment and Plan (1) Sepsis Current Visit: Yes Status: Resolved Priority: High Code(s): A41.9 - SEPSIS , UNSPECIFIED ORGANISM SNOMED Code(s): 18771961 (2) Leukopenia Narrative/Plan: Chemo induced, mild with adequate ANC Current Visit: Yes Status: Acute Priority: High Code(s): D72.819 - DECREASED WHITE BLOOD CELL COUNT, UNSPECIFIED SNOMED Code(s): 88638748 (3) UTI (urinary tract infection) Current Visit: Yes Status: Resolved Priority: High Code(s): N39.0 - URINARY TRACT INFECTION, SITE NOT SPECIFIED SNOMED Code(s): 22492795 (4) Breast cancer Narrative/Plan: Case has been reviewed with Primary Oncologist. Pt will meet with Dr. Woodard to discuss plan for treatment. No treatment until pt has completed abx course Current Visit: Yes Status: Acute Priority: Medium Code(s): C50.919 - MALIGNANT NEOPLASM OF UNSP SITE OF UNSPECIFIED FEMALE BREAST SNOMED Code(s): 840147841 (5) Antineoplastic chemotherapy induced anemia Narrative/Plan: Stable, improving Current Visit: Yes Status: Acute Priority: Medium Code(s): D64.81 - ANEMIA DUE TO ANTINEOPLASTIC CHEMOTHERAPY; T45.1X5A - ADVERSE EFFECT OF ANTINEOPLASTIC AND IMMUNOSUP DRUGS, INIT SNOMED Code(s): 540246317 Plan: Immunoglobulin results reviewed, no intervention Case was discussed with ID. CXR today is reported as clear Pt has f/u, ok from HemOnc standpoint to be discharged, once cleared with Attending and Consulting Physicians
--- NOTE | 2018-05-21 14:09 | P.DS ---
Providers Date of admission: 05/17/18 17:24 Expected date of discharge: 05/21/18 Attending physician: Khris Myers Consults: 05/17/18 17:20 Consult Physician Routine Consulting Provider: Wood Woodard Consult Reason/Comments: breast CA. Sepsis UTI Do you want consulting provider notified?: Yes 05/18/18 11:55 Consult Physician Routine Consulting Provider: Alli Padilla Consult Reason/Comments: NEUTROPENIC FEVER Do you want consulting provider notified?: Yes Primary care physician: [facility] Course: This is a 48-year-old female who presented to the emergency department complaining of fever at home. Patient has past medical history of active breast cancer on chemotherapy every for the last 3 weeks for a total of 16 treatments she has completed 7 cycles. Patient developed a fever at home and called her oncologist Dr. Woodard who put her on levofloxacin starting yesterday. Patient took 2 doses and continued to be febrile. She presented with a nonproductive cough, generalized abdominal pain with constipation. Her last bowel movement was approximately 3 days prior. She denied any chest pain shortness of breath or urinary symptoms. At this time patient is resting comfortably and continues to have no complaints. Her urine analysis showed positive UTI. Patient past medical history includes breast carcinoma without lymph node involvement, migraines, IBS. 05/19: Patient denies any new complaints. Dr. Padilla is following with recommendations for cefepime and Levaquin. CT angiogram of the chest was negative for PE. Oncology has ordered bilateral lower extremity ultrasounds. Patient given 1 dose of IV Lasix 20 mg and echocardiogram ordered as well as repeat chest x-ray. IV fluids changed to saline lock. 05/20: Bilateral lower extremity ultrasound negative for DVT. Patient states she is less short of breath today. She did get some good urine output after receiving Lasix yesterday. She states she still has a cough though. She has had a normal bowel movement. Echocardiogram has been done which revealed EF of 50-55%, trace mitral regurgitation, trace tricuspid regurgitation. She has been afebrile for greater than 24 hours, heart rate running in the 90s, blood pressure 96/64, pulse ox 94% on room air. 05/21: Patient denies any fever or chills. She continues to have a cough is nonproductive. No nausea or vomiting. Dr. Brothers is recommending Levaquin and patient would like this in a suspension form and she is having trouble taking the pills. White count is 34, hemoglobin 9.5, platelet count 236 Oncology has clear the patient for discharge with plan for follow-up. Patient will be discharged home today in stable condition. Discharge diagnoses: 1. Neutropenic fever. Urinary tract infection ruled out. 2. Leukopenia possibly neutropenia related to chemotherapy. 3. Generalized weakness. 4. Fever. 5. Constipation. 6. Migraine stable Discharge plan: Home Impression and plan of care have been directed as dictated by the signing physician. Kayla Anderson nurse practitioner acting as scribe for signing physician. Patient Condition at Discharge: Good Plan - Discharge Summary New Discharge Prescriptions: New Benzonatate [Tessalon Perles] 100 mg PO TID PRN #30 cap PRN Reason: Cough Levofloxacin Oral Soln [Levaquin Oral Soln] 500 mg PO DAILY #140 ml Continue Levofloxacin [Levaquin] 500 mg PO DAILY Discharge Medication List Levofloxacin [Levaquin] 500 mg PO DAILY 05/17/18 [History] Benzonatate [Tessalon Perles] 100 mg PO TID PRN #30 cap 05/21/18 [Rx] Levofloxacin Oral Soln [Levaquin Oral Soln] 500 mg PO DAILY #140 ml 05/21/18 [Rx ] Follow up Appointment(s)/Referral(s): Becca Tucker MD [Primary Care Provider] - 05/29/18 3:30 pm Wood Woodard MD [STAFF PHYSICIAN] - 1 Week (Dr. Woodard's office will call patient with an appointment date and time. ) Patient Instructions/Handouts: Benzonatate (By mouth), Levofloxacin (By mouth) , Urinary Tract Infection in Women (DC), Sepsis (GEN) Discharge Disposition: HOME SELF-CARE
--- NOTE | 2018-05-21 16:39 | PN ---
PROGRESS NOTE DATE OF SERVICE: 05/21/2018. REASON FOR FOLLOWUP: Fever and a question of pneumonia; also UTI. INTERVAL HISTORY: The patient is currently afebrile. The patient is breathing more comfortably. She did have a mild dry hacking cough but did not bring up any sputum. No chest pain. No abdominal pain. No diarrhea. No urinary symptoms. PHYSICAL EXAMINATION: Blood pressure is 99/68 with a pulse of 99, temperature 98.2. She is 97% on room air. General description is a middle-aged female up in the bed in no distress. RESPIRATORY SYSTEM: Unlabored breathing with decreased intensity of breath sounds. No wheeze. HEART: S1, S2. Regular rate and rhythm. ABDOMEN: Soft. No tenderness. LABS: Hemoglobin 9.5, white count 3.4. Blood and urine cultures have been negative. DIAGNOSTIC IMPRESSION AND PLAN: Patient admitted to hospital with fever in this patient who did have a positive urinalysis, low white count, with possible urinary tract infection. However, urine culture has been negative. Chest x-ray findings were mostly fluid-related rather than pneumonia. Patient shows overall improvement. She will finish therapy with a short course of oral Levaquin and close outpatient followup. MMODL / IJN: [id number] /
[2018-05-21] MEDS ORDERED: CHERRY FLAVOR 60 ML BOTTLE PO SCH (19:00)
== END 2018-05-21 15:45 | disposition home or self-care (01) | DRG 871 ==
LOC: EC 15:15 → 3NMEDONC 17:24
PROVIDERS: ADMIT Internal Medicine Geriatric Medicine; ATTEND Internal Medicine Geriatric Medicine
DX: A41.9 Sepsis, unspecified organism (principal); D61.810 Antineoplastic chemotherapy induced pancytopenia; J81.1 Chronic pulmonary edema; C50.919 Malignant neoplasm of unspecified site of unspecified female breast; D64.81 Anemia due to antineoplastic chemotherapy; G43.909 Migraine, unspecified, not intractable, without status migrainosus; K59.00 Constipation, unspecified; T45.1X5A Adverse effect of antineoplastic and immunosuppressive drugs, initial encounter; Z80.3 Family history of malignant neoplasm of breast; Z82.49 Family history of ischemic heart disease and other diseases of the circulatory system; Z82.5 Family history of asthma and other chronic lower respiratory diseases
CPT/HCPCS: 36415; 71046; 71275; 74177; 80048; 80053; 80076; 81001; 82784; 83605; 83690; 83735; 84100; 85025; 87040; 87086; 87502; 93306; 93970; 96361; 96365; 96375; 99285

== ENCOUNTER → 2018-11-12 | Outpatient (CLI) | payer BC ==
[~2018-11-12] MED LIST: LEUPROLIDE ACET 11.25MG SYRGKIT IM NR
[2018-11-12 11:02] VITALS: BP 104/60; PULSE 68; RESP 16; TEMP 97.7
== END | disposition home or self-care (01) ==
LOC: PROCWHC3 10:40
PROVIDERS: ATTEND Internal Medicine Hematology & Oncology
DX: Z51.11 Encounter for antineoplastic chemotherapy (principal); C50.411 Malignant neoplasm of upper-outer quadrant of right female breast
CPT/HCPCS: 96402; J1950

== ENCOUNTER → 2018-12-29 | Outpatient (CLI) | payer BC ==
--- NOTE | 2018-12-29 09:47 | BD ---
EXAMINATION TYPE: Axial Bone Density DATE OF EXAM: 12/29/2018 COMPARISON: NONE CLINICAL HISTORY: 48 YR OLD FEMALE....ICD-10 CODE: C50.411 BREAST CANCER, Z79.890 POST WU Height: 63 Weight: 147 FRAX RISK QUESTIONS: NOTHING ADDITIONAL TO NOTE HERE RISK FACTORS HISTORY OF: HX OF LT CLAVICLE AND RT ANKLE... 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 OTC Additional History: HX OF BREAST CANCER 2017, CHEMO FINISHED AUGUST 2018, RADIATION FINISHED LAST WEEK , RT BREAST, BILAT MASTECTOMY,...EXPANDERS IN PLACE NOW EXAM MEASUREMENTS: Bone mineral densitometry was performed using the [employer] System. Bone mineral density as measured about the Lumbar spine is: ----- L1-L4(G/cm2): 1.212 T Score Values are as follows: ----- L1: 0.6 ----- L2: 0.1 ----- L3: -0.3 ----- L4: 0.6 ----- L1-L4: 0.3 Bone mineral density IS A NEW STUDY, BASELINE Bone mineral density about the R hip (g/cm2): 0.945 Bone mineral density about the L hip (g/cm2): 0.921 T Score values are as follows: -----R Neck: -0.4 -----L Neck: -0.8 -----R Total: -0.5 -----L Total: -0.7 Bone mineral density IS A NEW STUDY, BASELINE FRAX%s: THERE IS A 3.7% CHANCE FOR A MAJOR OSTEOPOROTIC FX AND A 0.2% FOR HIP....PROBABILITY FOR FX IN 10 YRS TIME IMPRESSION: Normal (Values between +1 and -1 indicate normal bone mass). Consider repeating this study in 5 year s or sooner if there is some new clinical indication. NOTE: T-SCORE=SD OF THE YOUNG ADULT MEAN.
== END | disposition home or self-care (01) ==
LOC: RADBDWWP 08:33
PROVIDERS: ATTEND Internal Medicine Hematology & Oncology
DX: C50.411 Malignant neoplasm of upper-outer quadrant of right female breast (principal); N95.1 Menopausal and female climacteric states; Z79.890 Hormone replacement therapy
CPT/HCPCS: 77080

== ENCOUNTER → 2019-02-11 | Outpatient (CLI) | payer BC ==
[2019-02-11 15:22] VITALS: BP 119/80; PULSE 63; RESP 16; TEMP 98.2
== END | disposition home or self-care (01) ==
LOC: PROCWHC3 14:43
PROVIDERS: ATTEND Internal Medicine Hematology & Oncology
DX: Z51.11 Encounter for antineoplastic chemotherapy (principal); C50.411 Malignant neoplasm of upper-outer quadrant of right female breast
CPT/HCPCS: 96402; J1950

== ENCOUNTER → 2019-05-14 | Outpatient (CLI) | payer BC ==
[~2019-05-14] MED LIST changes: +SODIUM CHLORIDE 0.9% 500 ML 500 ML in EMPTY BAG 1 BAG IV PRN; +ZOLEDRONIC ACID 4 MG in SODIUM CHLORIDE 0.9% 100 ML IV NR
[2019-05-14 14:32] VITALS: BP 141/68; PULSE 70; RESP 16; TEMP 98.3
== END | disposition home or self-care (01) ==
LOC: PROCWHC3 13:45
PROVIDERS: ATTEND Internal Medicine Hematology & Oncology
DX: Z51.11 Encounter for antineoplastic chemotherapy (principal); C50.411 Malignant neoplasm of upper-outer quadrant of right female breast
CPT/HCPCS: 96365; 96402; J3489; J1950

== ENCOUNTER → 2019-08-13 | Outpatient (CLI) | payer BC ==
[~2019-08-13] MED LIST changes: -SODIUM CHLORIDE 0.9% 500 ML 500 ML in EMPTY BAG 1 BAG IV PRN; -ZOLEDRONIC ACID 4 MG in SODIUM CHLORIDE 0.9% 100 ML IV NR
[2019-08-13 09:58] VITALS: BP 136/72; PULSE 76; RESP 16; TEMP 97.8
== END | disposition home or self-care (01) ==
LOC: PROCWHC3 09:37
PROVIDERS: ATTEND Internal Medicine Hematology & Oncology
DX: Z51.11 Encounter for antineoplastic chemotherapy (principal); C50.411 Malignant neoplasm of upper-outer quadrant of right female breast
CPT/HCPCS: 96402; J1950

== ENCOUNTER → 2019-11-06 | Outpatient (CLI) | payer BC ==
[~2019-11-06] MED LIST changes: +SODIUM CHLORIDE 0.9% 500 ML 500 ML in EMPTY BAG 1 BAG IV PRN; +ZOLEDRONIC ACID 4 MG in SODIUM CHLORIDE 0.9% 100 ML IV NR
[2019-11-06 14:26] VITALS: BP 135/81; PULSE 64; RESP 16
== END | disposition home or self-care (01) ==
LOC: PROCWHC3 13:23
PROVIDERS: ATTEND Internal Medicine Hematology & Oncology
DX: C50.411 Malignant neoplasm of upper-outer quadrant of right female breast (principal)
CPT/HCPCS: 96365; 96372; J3489; J1950

== ENCOUNTER → 2020-02-11 | Outpatient (CLI) | payer BC ==
[~2020-02-11] MED LIST changes: -SODIUM CHLORIDE 0.9% 500 ML 500 ML in EMPTY BAG 1 BAG IV PRN; -ZOLEDRONIC ACID 4 MG in SODIUM CHLORIDE 0.9% 100 ML IV NR
[2020-02-11 13:26] VITALS: BP 135/87; PULSE 96; RESP 16; TEMP 98.4
== END | disposition home or self-care (01) ==
LOC: PROCWHC3 13:12
PROVIDERS: ATTEND Internal Medicine Hematology & Oncology
DX: C50.411 Malignant neoplasm of upper-outer quadrant of right female breast (principal)
CPT/HCPCS: 96402; J1950

== ENCOUNTER → 2020-05-13 | Outpatient (CLI) | payer BC ==
[~2020-05-13] MED LIST changes: +SODIUM CHLORIDE 0.9% 500 ML 500 ML in EMPTY BAG 1 BAG IV PRN; +ZOLEDRONIC ACID 4 MG in SODIUM CHLORIDE 0.9% 100 ML IV NR
[2020-05-13 14:01] VITALS: BP 122/86; PULSE 85; RESP 16; TEMP 98
== END | disposition home or self-care (01) ==
LOC: PROCWHC3 13:18
PROVIDERS: ATTEND Internal Medicine Hematology & Oncology
DX: C50.411 Malignant neoplasm of upper-outer quadrant of right female breast (principal)
CPT/HCPCS: 96367; 96402; J3489; J1950

== ENCOUNTER → 2020-08-12 | Outpatient (CLI) | payer BC ==
[~2020-08-12] MED LIST changes: -SODIUM CHLORIDE 0.9% 500 ML 500 ML in EMPTY BAG 1 BAG IV PRN; -ZOLEDRONIC ACID 4 MG in SODIUM CHLORIDE 0.9% 100 ML IV NR
[2020-08-12 13:50] VITALS: BP 134/94; PULSE 92; RESP 16; TEMP 98.7
== END ==
LOC: PROCWHC3 13:27
PROVIDERS: ATTEND Internal Medicine Hematology & Oncology
DX: C50.411 Malignant neoplasm of upper-outer quadrant of right female breast (principal)
CPT/HCPCS: 96402; J1950

== ENCOUNTER 2020-09-08 13:10 | Day surgery (SDC) | payer BC ==
[2020-09-07 09:10] VITALS: BMI 30.1
[2020-09-08] MEDS ORDERED: MIDAZOLAM 2 MG/2 ML VIAL IV PRN (13:31)
[2020-09-08] MEDS ORDERED: LIDOCAINE 1% (10MG/ML) FOR IV START INTRADERMA PRN (13:31)
[2020-09-08] MEDS ORDERED: HYDROmorphone 0.5 MG/0.5 ML SYRINGE IVP PRN (13:31)
[2020-09-08] MEDS ORDERED: ONDANSETRON 4 MG/2 ML VIAL IVP ONE (13:31)
[2020-09-08] MEDS ORDERED: DEXAMETHASONE SOD PHOSPHATE 4 MG/ML 1 ML VIAL IV ONE (13:31)
[2020-09-08] MEDS ORDERED: LACTATED RINGERS 1,000 ML IV SCH (13:31)
--- NOTE | 2020-09-08 13:37 | XR ---
KUB HISTORY: Preop right kidney stone Frontal KUB and 2 images, correlation CT scan 05/17/2018 Lung bases are clear. There is retained fecal debris throughout the distribution of the colon which m ay obscure underlying detail. There are multiple calcifications seen within the pelvis. Questionable calcification is noted over the right sacral ala margin measuring approximately 7 mm. No evident barbie l obstruction or pneumoperitoneum. IMPRESSION: Nonspecific findings
[2020-09-08 14:41] LABS: Calcium 10.2 mg/dL (8.4-10.2); Potassium 3.8 mmol/L (3.5-5.1)
[2020-09-08] MEDS ORDERED: KETOROLAC 15 MG/ML 1 ML VIAL ONE (14:55)
[2020-09-08] MEDS ORDERED: SUCCINYLCHOLINE CHLORIDE 100 MG/5 ML SYR IV ONE (14:55)
[2020-09-08] MEDS ORDERED: PROPOFOL 10 MG/ML 20 ML VIAL IV ONE (14:55)
[2020-09-08] MEDS ORDERED: fentaNYL (PF) 50 MCG/ML 2 ML AMP ONE (14:55)
[2020-09-08] MEDS ORDERED: LIDOCAINE 1% INJ 10MG/ML (20 ML MDV) ONE (14:55)
[2020-09-08] MEDS ORDERED: ePHEDrine SULFATE/0.9% NACL/PF 50 MG/5 ML SYRINGE IV ONE (14:55)
[2020-09-08] MEDS ORDERED: MIDAZOLAM 2 MG/2 ML VIAL ONE (14:55)
--- NOTE | 2020-09-08 15:07 | P.HPIHPCON ---
History of Present Illness H&P Date: 09/08/20 Chief Complaint: right ureteral calculi 50 yo female with hx of right ureteral calculi. She is symptomatic from her stone. Option of right sided ureteroscopy with holmium laser. Discussed risk of bleeding, infection, ureteral injury. Discussed risk from anesthesia. She unde rstood all risk and agreed to proceed Consent for Procedure: I have explained the operation/procedure to the patient, including the risks, benefits, side effects, alternative therapies (including not receiving the proposed treatment or service), the likelihood of the patient achieving his/her goals, and potential recuperation problems for the procedure/sedation/analgesia, as well as any blood products, if indicated. I also explained to the patient the risks, benefits and side effects of the alternatives, as well as the risks related to not receiving the proposed procedure, care, treatment, or services. Past Medical History Past Medical History: Cancer Additional Past Medical History / Comment(s): "migraines a couple times a week". Breast Cancer-receives infusion q 3 mos for tx History of Any Multi-Drug Resistant Organisms: None Reported Past Surgical History: Section Additional Past Surgical History / Comment(s): x1. Bilateral Mastectomy with Expanders Past Anesthesia/Blood Transfusion Reactions: Postoperative Nausea & Vomiting (PONV) Smoking Status: Never smoker - Past Family History Mother Family Medical History: Cancer, COPD, Dementia Additional Family Medical History / Comment(s): "mother may have had breast cancer". Mother at 76 related to dementia. Maternal aunt had breast cancer that went metastatic Father Family Medical History: Myocardial Infarction ([place]) Additional Family Medical History / Comment(s): in 1995 age of 52 Daughter(s) Family Medical History: No Reported History Brother(s) Family Medical History: No Reported History Medications and Allergies Home Medications Medication Instructions Recorded Confirmed Type Multivitamins, Thera [Multivitamin 1 tab PO DAILY 11/12/18 09/08/20 History (formulary)] Letrozole [Femara] 2.5 mg PO DAILY 05/14/19 09/08/20 History Calcium Carbonate/Vitamin D3 4 tab PO DAILY 11/06/19 09/08/20 History [Calcium 250-D Tablet] Ibuprofen [Motrin] 800 mg PO Q8H PRN 09/07/20 09/08/20 History Ketorolac [Toradol] 10 mg PO Q6H PRN 09/07/20 09/08/20 History Allergies Allergy/AdvReac Type Severity Reaction Status Date / Time No Known Allergies Allergy Verified 09/08/20 13:41 Surgical - Exam Vital Signs Temp Pulse Resp BP Pulse Ox 97.6 F 77 16 123/82 100 09/08/20 13:49 09/08/20 13:49 09/08/20 13:49 09/08/20 13:49 09/08/20 13:49 - General well developed, well nourished, no distress, moderate pain - Eyes PERRL, normal ocular movement - Respiratory normal expansion, normal respiratory effort - Abdomen Abdomen: soft, non tender Results - Labs 09/08/20 14:14 Abnormal Lab Results - Last 24 Hours (Table) 09/08/20 Range/Units 14:14 BUN 20 H (7-17) mg/dL Diabetes panel 09/08/20 Range/Units 14:14 Sodium 141 (137-145) mmol/L Potassium 3.8 (3.5-5.1) mmol/L Chloride 104 (98-107) mmol/L Carbon Dioxide 28 (22-30) mmol/L BUN 20 H (7-17) mg/dL Creatinine 0.94 (0.52-1.04) mg/dL Glucose 92 (74-99) mg/dL Calcium 10.2 (8.4-10.2) mg/dL Calcium panel 09/08/20 Range/Units 14:14 Calcium 10.2 (8.4-10.2) mg/dL Pituitary panel 09/08/20 Range/Units 14:14 Sodium 141 (137-145) mmol/L Potassium 3.8 (3.5-5.1) mmol/L Chloride 104 (98-107) mmol/L Carbon Dioxide 28 (22-30) mmol/L BUN 20 H (7-17) mg/dL Creatinine 0.94 (0.52-1.04) mg/dL Glucose 92 (74-99) mg/dL Calcium 10.2 (8.4-10.2) mg/dL Adrenal panel 09/08/20 Range/Units 14:14 Sodium 141 (137-145) mmol/L Potassium 3.8 (3.5-5.1) mmol/L Chloride 104 (98-107) mmol/L Carbon Dioxide 28 (22-30) mmol/L BUN 20 H (7-17) mg/dL Creatinine 0.94 (0.52-1.04) mg/dL Glucose 92 (74-99) mg/dL Calcium 10.2 (8.4-10.2) mg/dL Assessment and Plan Assessment: -OR for right sided ureteroscopy with holmium laser
[2020-09-08] MEDS ORDERED: IOHEXOL 350 MG/ML 50 ML in EMPTY BAG 1 BAG IRRIGATION ONE (15:34)
[2020-09-08] MEDS ORDERED: LACTATED RINGERS 1,000 ML IV ONE (15:55)
[2020-09-08 16:23] VITALS: TEMP 97.5
--- NOTE | 2020-09-08 16:27 | FL ---
Fluoroscopy HISTORY: Stent placement 36 seconds fluoroscopy time supplied to the referring clinician. 2 intraoperative C-arm images docum ent the procedure. See dictated report from urology.
--- NOTE | 2020-09-08 16:37 | P.OP ---
Date of Procedure: 09/08/20 Preoperative Diagnosis: Right ureteral stone Postoperative Diagnosis: Same Procedure(s) Performed: Cystoscopy, right ureteroscopy, holmium laser lithotripsy, stone basketing and stent placement Implants: 6-Azerbaijani by 24 cm stent Anesthesia: HEIDI Surgeon: Ramos Brambila Estimated Blood Loss (ml): 5 Pathology: other (Right ureteral stone) Condition: stable Disposition: PACU Indications for Procedure: 50 yo female with hx of right ureteral calculi. She is symptomatic from her stone. Option of right sided ureteroscopy with holmium laser. Discussed risk of bleeding, infection, ureteral injury. Discussed risk from anesthesia. She understood all risk and agreed to proceed Operative Findings: Large stone within the right distal ureter, significant blood clot within the collecting system Description of Procedure: Patient was brought to the operating room, general anesthesia was induced. She was prepped and draped in sterile fashion and placed in dorsal lithotomy position. A cystoscopy fitted with a 21-Azerbaijani sheath was inserted per urethra, cystoscopy was performed which showed no abnormality within the bladder. Attention was then carried to the right ureteral orifice. A semirigid ureter oscope was inserted through the urethra, and advanced up the right ureteral orifice. A stone was encountered in distal ureter, using the holmium laser the stone was fragmented into small fragments. Sizable fragments were removed using the stone basket and sent for analysis. The ureteroscope was advanced all the way up to the proximal ureter, retrograde pyelogram was performed which showed a filling defect within the renal pelvis with hydronephrosis. At this time a sensor wire was advanced through the ureteroscope and the ureteroscope was withdrawn with the wire in place. Pullback ureteroscopy was performed which showed sizable fragments or injury to the ureter. Next an 1113 Azerbaijani access sheath was passed over the wire into the proximal ureter. Next flexible ureteroscope was inserted through the access sheath, renoscopy was performed which showed a large blood clot in the collecting system, no evidence of stones or tumors were visualized, complete renoscopy was performed and all calyces were evaluated. The blood clot was broken up into smaller pieces using the holmium laser. There is no evidence of tumor or stone within the clot. At this time pullback ureteroscopy was performed which showed no injury to the ureter or any ureteral stones, a sensor wire was advanced through the scope as it was withdrawn. Next ureteral stent was passed over the wire, the proximal curl was visualized on fluoroscopy and the distal curl was visualized using the cystoscope. The bladder was emptied and of the case, patient tolerated the procedure well was taken to PACU in stable condition
[2020-09-08 17:18] VITALS: BP 133/74; PULSE 85; RESP 16
== END 2020-09-08 18:03 | disposition home or self-care (01) ==
LOC: OR 13:10
PROVIDERS: ATTEND Urology
DX: N20.1 Calculus of ureter (principal); G43.909 Migraine, unspecified, not intractable, without status migrainosus; Z79.899 Other long term (current) drug therapy
CPT/HCPCS: 80048; 74420; 74018; 50590; 52332; C2625; C1769 ×2; C1758; J2250; J1100; J0690; J2405; J2001; J3010; J1885; J0330; J2704; Q9967

== ENCOUNTER → 2020-11-11 | Outpatient (CLI) | payer BC ==
[~2020-11-11] MED LIST changes: +SODIUM CHLORIDE 0.9% 500 ML 500 ML in EMPTY BAG 1 BAG IV PRN; +ZOLEDRONIC ACID 4 MG in SODIUM CHLORIDE 0.9% 100 ML IV NR
[2020-11-11 13:04] VITALS: BP 123/82; PULSE 78; RESP 16; TEMP 98.2
== END | disposition home or self-care (01) ==
LOC: PROCWHC3 12:24
PROVIDERS: ATTEND Internal Medicine Hematology & Oncology
DX: C50.411 Malignant neoplasm of upper-outer quadrant of right female breast (principal)
CPT/HCPCS: 96365; 96402; J3489; J1950

== ENCOUNTER → 2020-12-20 | Outpatient (CLI) | payer BC ==
--- NOTE | 2020-12-20 10:01 | US ---
EXAMINATION TYPE: US kidneys/renal and bladder DATE OF EXAM: 12/20/2020 COMPARISON: CT 05/17/18 CLINICAL HISTORY: 50-year-old female N20.0 Calculus of kidney. Right renal calculus removed 8-10 week s ago EXAM MEASUREMENTS: Right Kidney: 11.0 x 4.7 x 4.7 cm Left Kidney: 11.8 x 5.3 x 4.6 cm Post Void Residual Volume: 35.9 mL Right Kidney: Mild right-sided hydronephrosis. Echogenic focus measuring 5mm in lower pole, without s hadowing Left Kidney: No hydronephrosis. Bladder: wnl Bilateral Jets seen: Yes Normal Post Void Residual: Yes Incidental echogenic appearance to the liver suggesting fatty infiltration. IMPRESSION: 1. Mild right-sided hydronephrosis. 2. Possible 5 mm nonobstructive right lower pole renal calculus.
== END | disposition home or self-care (01) ==
LOC: RADUSWWP 07:06
PROVIDERS: ATTEND Urology
DX: N13.2 Hydronephrosis with renal and ureteral calculous obstruction (principal)
CPT/HCPCS: 76770

== ENCOUNTER → 2021-02-10 | Outpatient (CLI) | payer BC ==
[~2021-02-10] MED LIST changes: -SODIUM CHLORIDE 0.9% 500 ML 500 ML in EMPTY BAG 1 BAG IV PRN; -ZOLEDRONIC ACID 4 MG in SODIUM CHLORIDE 0.9% 100 ML IV NR
[2021-02-10 12:46] VITALS: BP 148/82; PULSE 94; RESP 16; TEMP 97.5
== END | disposition home or self-care (01) ==
LOC: PROCWHC3 12:29
PROVIDERS: ATTEND Internal Medicine Hematology & Oncology
DX: C50.411 Malignant neoplasm of upper-outer quadrant of right female breast (principal)
CPT/HCPCS: 96402; J1950

== ENCOUNTER → 2021-03-21 | Outpatient (CLI) | payer BC ==
--- NOTE | 2021-03-21 14:48 | BD ---
EXAMINATION TYPE: Axial Bone Density DATE OF EXAM: 03/21/2021 COMPARISON: 12.29.2018 CLINICAL HISTORY: 51 YR OLD FEMALE.....ICD-10 CODE: C0.411 CANCER/BREAST Height: 63.3 Weight: 164 FRAX RISK QUESTIONS: Family History (Parent hip fracture): NO FX RISK FACTORS HISTORY OF: Family History of Osteoporosis: YES, MOTHER W/O HIP FX Active: YES, WORKING [employer] Postmenopausal woman: LMP AT 48 [place], LUPRON SHOTS Hyperparathyroidism: NO Adrenal Insufficiency: NO MEDICATIONS: Additional Medications: HX OF CHEMO, HX OF RADIATION, VITAMINS, Additional History: HX OF BR CANCER, 2018, CHEMO, RADIATION...BILAT MASTECTOMY, WITH IMPLANTS, EXAM MEASUREMENTS: Bone mineral densitometry was performed using the [employer] System. Bone mineral density as measured about the Lumbar spine is: ----- L1-L4(G/cm2): 1.261 T Score Values are as follows: ----- L1: 1.1 ----- L2: 0.5 ----- L3: 0.6 ----- L4: 0.4 ----- L1-L4: 0.7 Bone mineral density has: Increased 3.6% since study of: 12.29.2018 Bone mineral density about the R hip (g/cm2): 0.971 Bone mineral density about the L hip (g/cm2): 0.954 T Score values are as follows: -----R Neck: -0.4 -----L Neck: -0.7 -----R Total: -0.3 -----L Total: -0.4 Bone mineral density has: Increased 3.2% since study of: 12.29.2018 FRAX%s: THERE IS A 4.3% CHANCE FOR A MAJOR OSTEOPOROTIC FX AND A 0.1% FOR HIP......PROBABILITY FOR FX IN 10 YRS TIME IMPRESSION: Normal (Values between +1 and -1 indicate normal bone mass). Consider repeating this study in 5 year s or sooner if there is some new clinical indication. NOTE: T-SCORE=SD OF THE YOUNG ADULT MEAN.
== END | disposition home or self-care (01) ==
LOC: RADBDWWP 13:12
PROVIDERS: ATTEND Internal Medicine Hematology & Oncology
DX: C50.411 Malignant neoplasm of upper-outer quadrant of right female breast (principal)
CPT/HCPCS: 77080

== ENCOUNTER → 2021-05-12 | Outpatient (CLI) | payer BC ==
[~2021-05-12] MED LIST changes: +SODIUM CHLORIDE 0.9% 500 ML 500 ML in EMPTY BAG 1 BAG IV PRN; +ZOLEDRONIC ACID 4 MG in SODIUM CHLORIDE 0.9% 100 ML IV NR
[2021-05-12 12:59] VITALS: BP 128/84; PULSE 79; RESP 15; TEMP 98
== END | disposition home or self-care (01) ==
LOC: PROCWHC3 12:28
PROVIDERS: ATTEND Internal Medicine Hematology & Oncology
DX: C50.411 Malignant neoplasm of upper-outer quadrant of right female breast (principal)
CPT/HCPCS: 96365; 96402; J3489

== ENCOUNTER → 2021-12-12 | Outpatient (CLI) | payer BC ==
--- NOTE | 2021-12-12 16:42 | US ---
EXAMINATION TYPE: US kidneys/renal and bladder DATE OF EXAM: 12/12/2021 COMPARISON: US 2020 CLINICAL HISTORY: N13.30 HYDRONEPHROSIS. Right hydronephrosis, kidney stones. EXAM MEASUREMENTS: Right Kidney: 11.1 x 6.1 x 5.3 cm Left Kidney: 11.3 x 5.3 x 4.6 cm Right Kidney: Hyperechoic focus seen lower pole: 0.6 x 0.5 x 0.3 cm. Left Kidney: No hydronephrosis or masses seen Bladder: Appears anechoic Bilateral Jets seen: Yes IMPRESSION: 1. No evidence of obstructive uropathy. 2. Right nonobstructing renal calculi.
== END | disposition home or self-care (01) ==
LOC: RADUSWWP 15:33
PROVIDERS: ATTEND Urology
DX: N20.0 Calculus of kidney (principal)
CPT/HCPCS: 76770

== ENCOUNTER → 2022-01-04 | Outpatient (CLI) | payer BC ==
--- NOTE | 2022-01-04 14:21 | XR ---
EXAMINATION TYPE: XR KUB DATE OF EXAM: 01/04/2022 HISTORY: N20.1 CALCULUS OF URETER Comparison: None. Technique: Supine KUB is submitted for interpretation with 2 radiographs. Findings: No gross evidence of pneumoperitoneum within limitations of a supine exam. Retained fecal debris demo nstrated throughout the colon which may have scattered underlying detail. No evidence for bowel obstr uction. Multiple calcifications are again seen within the pelvis and not significantly changed. Consi stent with pelvic fluid lips. No additional calculi along the expected courses of the ureters or kidn eys. IMPRESSION: Multiple pelvic phleboliths without definitive calculi within the expected regions of the ureters and kidneys.
== END | disposition home or self-care (01) ==
LOC: RADXRMAIN 13:37
PROVIDERS: ATTEND Urology
DX: N20.1 Calculus of ureter (principal)
CPT/HCPCS: 74018

== ENCOUNTER → 2024-09-07 | Outpatient (CLI) | payer BC ==
[2024-09-07 10:21] LABS: Chol/HDL Ratio 2.42 Ratio; LDL Cholesterol,Calculated 38.6 mg/dL (0.0-131.0)
== END | disposition home or self-care (01) ==
LOC: LABWHC1 07:57
PROVIDERS: ATTEND Nurse Practitioner Adult Health
DX: E78.5 Hyperlipidemia, unspecified (principal)
CPT/HCPCS: 36415; 80061